=== PATIENT | female | born 1960 | race Caucasian/White ===

== ENCOUNTER → 2020-07-01 08:42 | Outpatient (BNVA) | payer MEDICARE, SELFPAY | PROVIDERS: PCP Nurse Practitioner Family; Referring Provider Nurse Practitioner Family; Visit Provider Anesthesiology Pain Medicine | DX: M51.16 Intervertebral disc disorders with radiculopathy, lumbar region (principal); M51.36 Other intervertebral disc degeneration, lumbar region; M47.816 Spondylosis without myelopathy or radiculopathy, lumbar region; M54.9 Dorsalgia, unspecified; M96.1 Postlaminectomy syndrome, not elsewhere classified; M50.90 Cervical disc disorder, unspecified, unspecified cervical region; Z98.890 Other specified postprocedural states; Z79.891 Long term (current) use of opiate analgesic | CPT/HCPCS: 99205 ==

== ENCOUNTER → 2020-07-28 09:50 | Outpatient (BNVA) | payer MEDICARE, SELFPAY | PROVIDERS: PCP Nurse Practitioner Family; Visit Provider Anesthesiology Pain Medicine | DX: M54.9 Dorsalgia, unspecified (principal); M51.16 Intervertebral disc disorders with radiculopathy, lumbar region; M51.36 Other intervertebral disc degeneration, lumbar region; M50.90 Cervical disc disorder, unspecified, unspecified cervical region; M96.1 Postlaminectomy syndrome, not elsewhere classified; Z98.890 Other specified postprocedural states | CPT/HCPCS: 99214 ==

== ENCOUNTER 2020-08-16 09:11 | Emergency (ER) | payer MEDICARE, SELFPAY ==
[2020-08-16 09:13] VITALS: BP 162/100; PULSE 91; RESP 18; TEMP 36.6; O2SAT 94; BMI 44.1
--- NOTE | 2020-08-16 09:43 | W.ED.FEMALGU ---
HPI - Female Genitourinary General: Chief complaint: Urogenital-Female Stated complaint: POSS UTI, BEEN SICK FOR FEW DAYS Time Seen by Provider: 08/16/20 09:13 History of Present Illness: HPI Narrative: 60-year-old female morbidly obese presents with vague complaints. When I first talked to the patient she states that she just does not feel well and has not been getting any better. Is difficult to get her to focus on particular complaints. She told the nurse she had a UTI nausea and chills she not actually measured her temperature she had some diarrhea earlier in the week but that has resolved. She states she has a neurogenic bladder that she self caths but is not cath for a couple of days. Her urine has been dark. She denies chest pain shortness of breath or abdominal or back or flank pain. She denies any medication melena hematemesis coffee-ground emesis no hematuria. MD elicited complaint: dysuria Pertinent past history: recurrent UTIs, tubal ligation and hysterectomy Onset (ago): day(s) Severity: mild Urinary symptoms: Dysuria Exacerbating factors: none Relieving factors: none Associated symptoms: Reports fevers/chills, nausea and weakness; Deny abdominal pain, short of breath, headache(s), seizures or syncope Treatment prior to arrival: none Review of Systems Const: Denies: fever(s), chills, body aches, change in appetite, fatigue or malaise ENMT: Denies: throat pain, ear or mastoid pain, nasal discharge or nasal congestion Card: Denies: syncope Resp: Denies: dyspnea, productive cough or non-productive cough GI: Reports: nausea; Denies: abdominal pain : Denies: flank pain, difficulty voiding, dysuria, urinary frequency or urinary urgency Skin/Breast: Denies: rash or pruritus Neuro: Denies: headache(s) PFSH ED PFSH: Medical History Arthritis Degenerative disc disease Fibromyalgia Cinthya's disease Hypertension Lung nodule Neurogenic bladder Neuropathy Surgical History History of hysterectomy History of pelvic surgery History of spinal surgery History of tonsillectomy History of tubal ligation Hx of neck surgery 2018 Dr. Stone [place]ustill[place] Family History Father Heart disease Mother Cancer Social History Smoking and tobacco status: never smoked Alcohol intake: never Adopted: No Caregiver/support person: No Lives independently: No Household members: spouse Marital status: Current occupational status: retired History of recent travel: No Sexually active: Yes Current gender identity: Female Physical Exam Const: COMMON NORMALS: no acute distress GENERAL APPEARANCE: cooperative and comfortable ORIENTATION/CONSCIOUSNESS: Yes awake, Yes oriented to person, Yes oriented to place and Yes oriented to time HENMT: COMMON NORMALS: normocephalic, atraumatic and hearing grossly normal bilaterally HEAD & SCALP: normocephalic and atraumatic Neck/C-Spine: COMMON NORMALS: no JVD Resp: COMMON NORMALS: normal respiratory effort, No retractions, No use of accessory muscles and clear to auscultation bilaterally AUSCULTATION: clear to auscultation bilaterally Cardio: COMMON NORMALS: no JVD, regular rate, regular rhythm and No murmurs present (Cardio) RATE: regular rate RHYTHM: regular rhythm GI: COMMON NORMALS: Soft to palpation and No hepatosplenomegaly present AUSCULTATION: Yes normoactive bowel sounds PALPATION: Yes Soft to palpation, No Tenderness to palpation present (GI), No Guarding due to palpation present (GI) and Yes No hepatosplenomegaly present Extremity: COMMON NORMALS: normal to inspection, capillary refill normal, no clubbing, cyanosis or edema, no calf tenderness and no pedal edema Neuro: SENSORIUM/ORIENTATION: Yes oriented to person, Yes oriented to place and Yes oriented to time Skin: COMMON NORMALS: no rashes or lesions noted GENERAL SKIN EXAM: no rashes or lesions noted Course Vital Signs: Vital signs: Vital Signs Temperature 97.8 F 08/16/20 09:13 Pulse Rate 88 08/16/20 12:53 Respiratory Rate 18 08/16/20 12:53 Blood Pressure 158/88 08/16/20 12:53 Pulse Oximetry 98 08/16/20 12:53 MDM - Female MDM Narrative: Medical decision making narrative: Patient has cystitis. Given Rocephin 2 g here started on Cipro 500 twice daily for 7 days also gave her Rocephin push fluids return if has problems. Lab Data: Labs: Lab Results 08/16/20 08/16/20 08/16/20 Range/Units 10:20 10:20 10:35 WBC 9.1 (4.0-10.0) 10^3/ uL RBC 4.87 (4.1-5.3) 10^6/u L Hgb 14.5 (11.5-15.3) g/dL Hct 43.3 (37.0-47.0) % MCV 88.9 (81-99) fL MCH 29.8 (28.0-34.0) pg MCHC 33.5 (30.0-36.0) g/dL RDW 12.1 (12.1-15.1) % Plt Count 285 (130-400) 10^3/c mm MPV 11.6 H (7.4-10.4) fL Neut % (Auto) 63.5 % Lymph % (Auto) 25.9 % [place] % (Auto) 7.1 % Eos % (Auto) 2.3 % Baso % (Auto) 1.0 % Neut # (Auto) 5.75 (1.8-7.7) 10^3/u L Lymph # (Auto) 2.3 (0.8-4.8) 10^3/u L [place] # (Auto) 0.6 (0.2-0.9) 10^3/u L Eos # (Auto) 0.2 (0.0-0.8) 10^3/u L Baso # (Auto) 0.1 (0.0-0.1) 10^3/u L Nucleated RBC % (a uto) 0 % Nucleated RBCs # 0.0 /100WBC Sodium 138 (136-145) mmol/L Potassium 3.8 (3.5-5.1) mmol/L Chloride 99 (98-107) mmol/L Carbon Dioxide 28 (22-29) mmol/L Anion Gap 14.8 (5-19) BUN 12 (6-20) mg/dL Creatinine 0.7 (0.5-0.9) mg/dL GFR Calculation 85.6 L (90-130) mL/min Glucose 112 (65-115) mg/dL Calculated Osmolal ity 287 (285-295) mOsm/k g Calcium 9.4 (8.5-10.5) mg/dL Total Bilirubin 0.8 (0.15-1.2) mg/dL AST 17 (0-32) U/L ALT 13 (0-33) U/L Alkaline Phosphata se 113 H (35-105) IU/L Total Protein 7.2 (6.6-8.7) g/dL Albumin 4.1 (3.5-5.2) g/dL Globulin 3.1 (1.3-4.6) g/dL Lipase 12 L (13-60) U/L Urine Color Yellow (Yellow) Urine Appearance Cloudy (CLEAR) Urine pH 6 (5-7) Ur Specific Gravit y 1.015 (1.005-1.030) Urine Protein Neg (Negative) Urine Glucose (UA) Norm (Normal) Urine Ketones Negative (Negative) Urine Blood Trace H (Negative) Urine Nitrate Negative (Negative) Urine Bilirubin 1+ H (Negative) Urine Urobilinogen Norm (Negative) mg/dL Ur Leukocyte Wendy ase 1+ H (Negative) Urine RBC 0-4 H (0-2) /hpf Urine WBC 25-40 H (0-5) /hpf Ur Squamous Epith Cells 5-10 H (0-5) /hpf Amorphous Sediment Not Reportable Urine Bacteria 2+ H (NONE) /hpf Discharge Plan Discharge Patient Disposition: Home Clinical Impression: Urinary tract infection Condition: Stable Prescriptions: New Zofran 4 mg tablet 4 mg PO Q6H PRN (Reason: nausea and vomiting) Qty: 20 RF: 0 Cipro 500 mg tablet 500 mg PO BID Qty: 7 RF: 0 No Action oxycodone-acetaminophen 7.5-325 mg tablet 1 tab PO TID PRN (Reason: pain) 30 Days Qty: 90 RF: 0 duloxetine 60 mg capsule,delayed release(DR/EC) 60 mg PO BID RF: 0 levothyroxine 88 mcg tablet 88 mcg PO DAILY RF: 0 valsartan 160 mg tablet 160 mg PO DAILY RF: 0 methocarbamol 750 mg tablet 750 mg PO QID PRNRF: 0 celecoxib 200 mg capsule 200 mg PO DAILY RF: 0 hydrochlorothiazide 25 mg tablet 25 mg PO DAILY RF: 0 multivitamin Tablet 1 tab PO DAILY RF: 0 diltiazem HCl 240 mg capsule,extended release 24hr 240 mg PO DAILY RF: 0 cholecalciferol (vitamin D3) 125 mcg (5,000 unit) capsule 125 mcg PO DAILY RF: 0 magnesium 200 mg tablet 400 mg PO DAILY RF: 0 Azo Cranberry 250 mg tablet,chewable 250 mg PO DAILY RF: 0 Lubricant Eye Drops 0.25 % drops 1 drp ophthalmic (eye) BID RF: 0 mecobalamin (vitamin B12) 1,000 mcg tablet,chewable 1,000 mcg PO DAILY RF: 0 Azo Cranberry 250 mg tablet,chewable 250 mg PO ONCE PRNRF: 0 hydrochlorothiazide 25 mg tablet 25 mg PO DAILY RF: 0 pregabalin 200 mg capsule 200 mg PO TID Qty: 90 RF: 0 Discharge Orders: Discharge ED (Routine); Ordered 08/16/20 Ordered By: Florentino Arteaga Referrals: Carlyn Bro FNP [Primary Care Provider] - Discharge Diet: Usual diet Discharge Activity: Increase activity as tolerated Activity Restrictions/Additional Instructions: Return to ER if symptoms worsen Coding Level of Care Code ED Warehouse Consultant for Joe Fwd Exam Comprehensive
[2020-08-16] MEDS: sodium chloride 0.9% 1,000 ML 999 ML IV (10:39)
[2020-08-16 10:44] VITALS: BP 159/85; PULSE 68; RESP 18; O2SAT 95
[2020-08-16 10:54] LABS: Basophils # 0.1 10^3/uL (0.0-0.1); Eosinophils # 0.2 10^3/uL (0.0-0.8); Eosinophils % 2.3 %; Hematocrit 43.3 % (37.0-47.0); Hemoglobin 14.5 g/dL (11.5-15.3); Lymphocytes # 2.3 10^3/uL (0.8-4.8); Lymphocytes % 25.9 %; Mean Corpuscular HGB Conc 33.5 g/dL (30.0-36.0); Mean Corpuscular Hemoglobin 29.8 pg (28.0-34.0); Mean Corpuscular Volume 88.9 fL (81-99); Mean Platelet Volume 11.6 fL (7.4-10.4); Monocytes # 0.6 10^3/uL (0.2-0.9); Monocytes % 7.1 %; Neutrophils # 5.75 10^3/uL (1.8-7.7); Neutrophils % 63.5 %; Nucleated Red Blood Cells % 0 %; Platelet Count 285 10^3/cmm (130-400); Red Blood Count 4.87 10^6/uL (4.1-5.3); Red Cell Distribution Width 12.1 % (12.1-15.1); White Blood Count 9.1 10^3/uL (4.0-10.0)
[2020-08-16 10:59] LABS: Urine Appearance Cloudy (CLEAR); Urine Color Yellow (Yellow)
[2020-08-16 11:00] LABS: Add Urine Culture? Yes; Add Urine Microscopic? YES; Bacteria Urine 2+ /hpf; Bilirubin Urine 1+ (Negative); Blood Urine Trace (Negative); Glucose Urine UA Norm (Normal); Ketones Urine Negative (Negative); Leukocyte Esterase Urine 1+ (Negative); Nitrate Urine Negative (Negative); Protein Urine Neg (Negative); RBC Urine 0-4 /hpf (0-2); Specific Gravity, Urine 1.015 (1.005-1.030); Urobilinogen Urine Norm (Negative); WBC Urine 25-40 /hpf (0-5); pH Urine 6 (5-7)
[2020-08-16 11:05] LABS: Alanine Aminotransferase 13 U/L (0-33); Albumin Level 4.1 g/dL (3.5-5.2); Alkaline Phosphatase 113 IU/L (35-105); Aspartate Amino Transferase 17 U/L (0-32); Blood Urea Nitrogen 12 mg/dL (6-20); Calcium 9.4 mg/dL (8.5-10.5); Carbon Dioxide 28 mmol/L (22-29); Chloride 99 mmol/L (98-107); Globulin 3.1 g/dL (1.3-4.6); Glomerular Filtration Rate 85.6 mL/min (90-130); Glucose 112 mg/dL (65-115); Lipase 12 U/L (13-60); Osmolality Calculated 287 mOsm/kg (285-295); Sodium 138 mmol/L (136-145); Total Bilirubin 0.8 mg/dL (0.15-1.2); Total Protein 7.2 g/dL (6.6-8.7)
[2020-08-16 11:06] LABS: Anion Gap 14.8 (5-19); Potassium 3.8 mmol/L (3.5-5.1)
[2020-08-16] MEDS: ondansetron 2 mg/ML SDV 2 mL 4 MG IVP (12:09)
[2020-08-16] MEDS: cefTRIAXone 2,000 MG in sodium chloride 0.9% (plus) 50 ML 100 MG IV (12:10)
[2020-08-16 12:44] VITALS: BP 158/88; PULSE 88; RESP 18; O2SAT 98
[2020-08-16 12:53] VITALS: BP 158/88; PULSE 88; RESP 18; O2SAT 98
== END 2020-08-16 12:54 | disposition home or self-care (01) ==
PROVIDERS: Emergency Provider Family Medicine; PCP Nurse Practitioner Family
DX: N39.0 Urinary tract infection, site not specified (principal); I10 Essential (primary) hypertension
CPT/HCPCS: 12345; 36415; 51701; 51798; 80053; 81001; 83690; 85025; 87040; 87077; 87086; 87186; 96365; 96375; 99283; 99284; J0696; J2405; J7030

== ENCOUNTER → 2020-08-25 09:56 | Outpatient (BNVA) | payer MEDICARE, SELFPAY | PROVIDERS: PCP Nurse Practitioner Family; Visit Provider Anesthesiology Pain Medicine | DX: M96.1 Postlaminectomy syndrome, not elsewhere classified (principal); M50.90 Cervical disc disorder, unspecified, unspecified cervical region; M51.16 Intervertebral disc disorders with radiculopathy, lumbar region; M47.812 Spondylosis without myelopathy or radiculopathy, cervical region; M47.816 Spondylosis without myelopathy or radiculopathy, lumbar region; M53.3 Sacrococcygeal disorders, not elsewhere classified; M54.9 Dorsalgia, unspecified; M51.36 Other intervertebral disc degeneration, lumbar region; Z98.890 Other specified postprocedural states; Z79.891 Long term (current) use of opiate analgesic | CPT/HCPCS: 99214; 99215 ==

== ENCOUNTER → 2020-08-26 11:04 | Outpatient (BNVA) | payer MEDICARE, SELFPAY | PROVIDERS: PCP Nurse Practitioner Family; Visit Provider Nurse Practitioner Family | DX: R09.89 Other specified symptoms and signs involving the circulatory and respiratory systems (principal); I49.8 Other specified cardiac arrhythmias; I10 Essential (primary) hypertension; E55.9 Vitamin D deficiency, unspecified; E06.3 Autoimmune thyroiditis; E78.5 Hyperlipidemia, unspecified; N39.0 Urinary tract infection, site not specified | CPT/HCPCS: 80053; 80061; 81000; 82306; 84443 ==

== ENCOUNTER 2020-09-12 13:02 | Outpatient (CLI) | payer MEDICARE, SELFPAY ==
--- NOTE | 2020-09-12 13:30 | USCV_ITS ---
[facility] Age: 60 Gender: F : 1960 Exam Date: 09/12/2020 13:18 Ordering Phys: Jen Brar MD ([email or web address]) Technologist: Marie Gallegos [place] [facility] [place]: CARDIAC ARRHYTHMIAS BP: 112 / 83 HR: 71 Rhythm: Other Technical Quality: Adequate MEASUREMENTS (Male / Female) Normal Values 2D ECHO LV Diastolic Diameter PLAX 5.1 cm 4.2 - 5.9 / 3.9 - 5.3 cm LV Systolic Diameter PLAX 3.4 cm IVS Diastolic Thickness 1.0 cm 0.6 - 1.0 / 0.6 - 0.9 cm IVS Systolic Thickness 1.3 cm LVPW Diastolic Thickness 0.9 cm 0.6 - 1.0 / 0.6 - 0.9 cm LVPW Systolic Thickness 1.2 cm RV Chamber Size 4.5 cm LVOT Diameter 2.0 cm LV Ejection Fraction 2D Teich 63.0 % LV Ejection Fraction MOD 2C 62.9 % LV Ejection Fraction 2C AL 61.9 % LA Diameter 3.7 cm LA Width 3.4 cm LA Height 4.7 cm RA Width 2.9 cm RA Height 4.3 cm Aorta at Sinotubular Diameter 3.2 cm M-MODE LV Diastolic Diameter MM 5.7 cm 4.2 - 5.9 / 3.9 - 5.3 cm LV Systolic Diameter MM 3.2 cm LV Ejection Fraction MM Teich 74.1 % IVS Diastolic Thickness MM 1.1 cm 0.6 - 1.0 / 0.6 - 0.9 cm IVS Systolic Thickness MM 1.3 cm LVPW Diastolic Thickness MM 0.9 cm 0.6 - 1.0 / 0.6 - 0.9 cm LVPW Systolic Thickness MM 1.3 cm Aortic Annulus Diameter 3.2 cm LA Ao Ratio MM 1.2 MV E Point Septal Separation 0.4 cm DOPPLER AV Peak Velocity 158.0 cm/s LVOT Peak Velocity 99.0 cm/s AV Area Cont Eq vti 1.9 cm squared AV Area Cont Eq pk 2.0 cm squared MV Area PHT 4.6 cm squared Mitral E to A Ratio 1.0 MV E' Velocity 57.6 cm/s Mitral E to MV E' Ratio 7.2 Mitral E to LV E' Lateral Ratio 7.2 Mitral E to LV E' Septal Ratio 7.3 TR Peak Velocity 233.0 cm/s TR Peak Gradient 21.7 mmHg TV Peak E Velocity 121.0 cm/s Right Atrial Pressure 3.0 mmHg Pulmonary Artery Systolic Pressu 24.7 mmHg PV Peak Velocity 84.0 cm/s RV Acceleration Time 0.2 s RV Ejection Time 0.4 s RV AcT/ET 0.4 FINDINGS Left Ventricle Normal left ventricular size, systolic function and wall thickness, with no regional wall motion abnormalities. Left ventricular ejection fraction is estimated at 60 %. Normal diastolic function. Right Ventricle Normal right ventricular size and systolic function. Right ventricular systolic pressure 24.7 mmHg. Right Atrium Normal right atrial size. Right atrial pressure estimated at 3 mm Hg. Left Atrium Mildly increased left atrial size. Mitral Valve Structurally normal mitral valve. No mitral valve stenosis. Trace mitral valve regurgitation. Aortic Valve Structurally normal trileaflet aortic valve. No aortic valve stenosis. No aortic valve regurgitation. Tricuspid Valve Structurally normal tricuspid valve. Trace tricuspid valve regurgitation. Pulmonic Valve Structurally normal pulmonic valve. No pulmonary valve stenosis. Trace pulmonary valve regurgitation. Pericardium No pericardial effusion. Aorta Normal size aortic root and proximal ascending aorta. Normal sized inferior vena cava. CONCLUSIONS 1. Normal left ventricular size, systolic function and wall thickness, with no regional wall motion abnormalities. Left ventricular ejection fraction is estimated at 55-60 %. Normal diastolic function. 2. No significant valvular abnormality. 3. Normal pulmonary artery pressure. 4. Mildly increased left atrial size. 5. No prior similar studies to compare. Jen Brar MD (Electronically Signed) Final Date: 15 September 2020 19:59 S
== END 2020-09-12 13:03 | disposition home or self-care (01) ==
PROVIDERS: PCP Nurse Practitioner Family; Visit Provider Internal Medicine Cardiovascular Disease
DX: I49.8 Other specified cardiac arrhythmias (principal)
CPT/HCPCS: 93306

== ENCOUNTER → 2020-10-10 09:12 | Outpatient (BNVA) | payer MEDICARE, SELFPAY | PROVIDERS: PCP Nurse Practitioner Family; Visit Provider Anesthesiology Pain Medicine | DX: G89.29 Other chronic pain (principal); M51.16 Intervertebral disc disorders with radiculopathy, lumbar region; M47.816 Spondylosis without myelopathy or radiculopathy, lumbar region; M96.1 Postlaminectomy syndrome, not elsewhere classified; M54.9 Dorsalgia, unspecified; M51.36 Other intervertebral disc degeneration, lumbar region; M50.90 Cervical disc disorder, unspecified, unspecified cervical region; M53.3 Sacrococcygeal disorders, not elsewhere classified; Z98.890 Other specified postprocedural states; Z79.891 Long term (current) use of opiate analgesic | CPT/HCPCS: 99214 ==

== ENCOUNTER 2020-10-15 08:50 | Outpatient (CLI) | payer MEDICARE, SELFPAY ==
--- NOTE | 2020-10-15 09:15 | CT_ITS ---
WS: [id number] CT LUMBAR SPINE TECHNIQUE: Noncontrast CT of the lumbar spine with coronal and sagittal reformatted images. CLINICAL INFORMATION: M54.16 - Radiculopathy, lumbar region COMPARISON: None. DLP: [address] scans at [facility] use at least one of these dose optimization techniques: automat ed exposure control; mA and/or kV adjustment per patient size (includes targeted exams where dose is matched to clinical indication); or iterative reconstruction. FINDINGS: Mild lumbar curve. No acute compression. Slight anterolisthesis L3 on L4. Pedicle screw fixation L4-5 with interconnecting rods. Pedicle screws are intact. No evidence of screw loosening. Dorsal lateral bone graft material. Laminectomy defects L4-L5 and L5-S1. L1-L2: Slight annular bulging with peripheral disc calcification eccentric to the left. Spinal canal and foramen are patent. Mild facet arthropathy. L2-L3: Mild annular bulging. Moderate facet arthropathy. Spinal canal and foramen are patent. L3-L4: Grade 1 anterolisthesis L3 on L4. Disc bulging with impingement on the subarticular recess rig ht greater than left. Moderate central canal stenosis due to grade 1 anterolisthesis in combination w ith mild disc bulging and facet arthropathy with ligamentum flavum hypertrophy. Moderate facet arthro arden. Impingement on the traversing right greater than left L4 nerve roots. Bilateral foraminal prot rusions impinge the exiting L3 nerve roots bilaterally. Moderate right greater than left foraminal na rrowing. L4-L5: Pedicle screw fixation. No evidence of hardware loosening. Laminectomy defects. Spinal canal i s patent. Osteophytic ridging. Dorsal lateral bone graft material. Foramen are patent. L5-S1: Pedicle screw fixation. No significant disc bulging. Spinal canal and foramen are patent. Lami nectomy defects with dorsolateral bone graft material. Visualized pelvic bony structures: Normal. Paravertebral soft tissues: Normal. CT/CT lumbar spine wo con* [id number] IMPRESSION: 1. Mild lumbar curve. No acute compression. Grade 1 anterolisthesis L3 on L4. 2. Pedicle screw fixation L4-5 with dorsolateral bone graft material. No evide nce of hardware loosening. Interconnecting rods appear intact. 3. Grade 1 anterolisthesis L3 on L4 with disc bulging and facet arthropathy re sults in moderate central canal stenosis. Impingement on the right subarticular recess and traversing right L4 nerve root. Moderate right greater than left fo raminal narrowing with small bilateral foraminal protrusions. 4. Spinal canal and foramen are patent at the fusion levels L4-L5 and L5-S1.
== END 2020-10-15 08:51 | disposition home or self-care (01) ==
LOC: RADWPI 08:56
PROVIDERS: PCP Nurse Practitioner Family; Visit Provider Anesthesiology Pain Medicine
DX: M54.16 Radiculopathy, lumbar region (principal); M43.26 Fusion of spine, lumbar region; M43.27 Fusion of spine, lumbosacral region; M51.26 Other intervertebral disc displacement, lumbar region
CPT/HCPCS: 72131

== ENCOUNTER → 2020-10-21 13:06 | Outpatient (BNVA) | payer MEDICARE, SELFPAY | PROVIDERS: PCP Nurse Practitioner Family; Visit Provider Anesthesiology Pain Medicine | DX: M53.3 Sacrococcygeal disorders, not elsewhere classified (principal); M25.551 Pain in right hip; M25.552 Pain in left hip; M54.9 Dorsalgia, unspecified; Z79.891 Long term (current) use of opiate analgesic | CPT/HCPCS: 20610; G0260; J1030; J3490 ==

== ENCOUNTER 2020-10-22 08:44 | Outpatient (CLI) | payer MEDICARE, SELFPAY ==
--- NOTE | 2020-10-22 09:32 | XR_ITS ---
WS: [id number] Pelvis, AP and both obliques, 10/22/2020 Clinical Data: M53.3 - Sacrococcygeal disorders, not elsewhere classified Comparison: None. Findings: The hips are intact. The SI joints and pubic symphysis are normal. There are no fractures or dislocations. The patient has had a bony fusion and a pedicle fusion with s crews and connecting rods of the L4-L5 levels with laminectomies at L4 and L5. No bone destruction or erosion is seen. XR/XR pelvis min 3V [id number] Impression: Negative for fracture.
--- NOTE | 2020-10-22 09:32 | XR_ITS ---
WS: [id number] Lumbar spine, AP, Spot film L5-S1, both obliques, lateral with flexion, extension and neutral positio ns, 10/22/2020 Clinical Data: M47.816 - Spondylosis without myelopathy or radiculopathy, lumbar region Comparison: None. Findings: No compression fractures are seen. Degenerative disc narrowing occurs at L4-L5. The transverse proce sses and SI joints are normal. The patient has had a bony fusion and a pedicle fusion with screws and connecting rods at L4-L5. The oblique films show no foraminal narrowing. On flexion and extension there is no limitation of motion. There is a 0.4 subluxation of L3 on L4 which does not change with flexion or extension. XR/XR lumbar spine 6V w f/e [id number] Impression: 1. Bony and pedicle fusion with screws at L4-L5. 2. Disc space narrowing at L4-L5. 3. 0.4 subluxation of L3 on L4 which does not change with flexion or extension. 4. Negative for limitation of motion on flexion or extension. 5. Negative for foraminal narrowing on oblique films. 6. L4-L5 laminectomy.
--- NOTE | 2020-10-22 09:32 | XR_ITS ---
WS: [id number] Cervical spine, AP, lateral, both obliques and odontoid views, 10/22/2020 Clinical Data: M47.812 - Spondylosis without myelopathy or radiculopathy, cervical region Comparison: None. Findings: No compression fractures are seen. There is an anterior cervical disc fusion at C4-C5 with artificial disc material at C4-C5 and C5-C6.. There is no prevertebral soft tissue swelling. The obli que films show no foraminal encroachment. The odontoid is unremarkable. The soft tissues of the neck and the lung apices are normal. XR/XR cervical spine 4-5V [id number] Impression: 1. Anterior cervical disc fusion C4-C5. 2. Negative for foraminal encroachment.
[2020-10-22 09:42] VITALS: BMI 42.4
--- NOTE | 2020-10-22 09:45 | ECG_ITS ---
[facility] Test Date: 2020-10-22 Pat Name: Brigida Winkler Department: Room: Gender: Female Disintegrator Feeder: : 1960 Requested By: Jen Brar Order Number: [id number] Alexa MD: Jen Brar M.D. Interpretive Statements NAME OF STUDY: LEXISCAN SESTAMIBI STRESS TEST INDICATION: Frequent PVC's PROCEDURE: At the baseline, the blood pressure was 138/95 mmHg, oxygen saturation 95% with a heart rate of 78 bpm. The electrocardiogram showed normal sinus rhythm, normal axis with normal ST and T's. Frequent PVCs in bigeminal pattern were noted just before exercise. The Lexiscan was infused over a period of 20 seconds. A total of 0.4 milligrams of Lexiscan was infused. The stress phase was continued for a total of 5 minutes. Heart rate at the end of the stress phase was 90 bpm, oxygen saturation 96% with a blood pressure of 139/86 mmHg. The EKG at the peak infusion revealed sinus rhythm with frequent PVCs in bigeminal pattern. No significant ST-T wave changes. Sestamibi was injected 20 seconds after the Lexiscan infusion. Blood pressure at the end of the recovery phase was 136/80 mmHg, oxygen saturation 94% with a heart rate of 85 beats per minute. CONCLUSION: 1. No significant EKG changes with the LexiScan infusion. 2. No LexiScan induced chest pain. Frequent isolated PVCs in bigeminal pattern noted at rest and with Lexiscan infusion. 3. Normal blood pressure and heart rate response. 4. Sestamibi/sestamibi perfusion scan pending; see separate report. RESULTS TO ESME LOVE Electronically Signed On 10-27-2020 14:22:22 CDT by Jen Brar M.D. [id number]
--- NOTE | 2020-10-22 09:46 | NMCV_ITS ---
NM monica perf SPECT r/s* [id number] Brigida Winkler Age: 60 Gender: F : 1960 Exam Date: 10/22/2020 10:07 Ordering Phys: Jen Brar MD ([email or web address]) Technologist: JEAN Tirado Exam Location: [facility] - [place] Indications: ARRHYTHMIA STRESS TEST Please see separate stress test report in [facility] for full findings IMAGE PROTOCOL Rest/Stress 1 Lexiscan Day Radiopharmaceutical Dose (mCi) Administration Site Administered by Rest: Tc-99m 11.0 IV JEAN Murphy Sestamibi Stress:Tc-99m 32.7 IV JEAN Murphy Sestamibi Rest: 22-Oct-2020 60 Discovery 630 Stress: 22-Oct-2020 30 Discovery 630 0.4mg Lexiscan. Images obtained in supine and prone position. SPECT RESULTS Technical Quality: Excellent Raw Data Analysis: Breast attenuation Image Corrections: No attenuation or motion correction applied Summed Stress Score: 4 Summed Rest Score: 1 Summed Difference Score: 3 PERFUSION FINDINGS Small sized perfusion abnormality of mild severity of mid inferolateral wall on rest images with decreased tracer uptake in mid to apical inferolateral taylor on supine stress images. There is somewhat improved tracer uptake in mid inferolateral wall on prone stress images. FUNCTIONAL RESULTS (calculated via Gated SPECT) Stress Image LV EF (%): 74 Stress EDV (mL):104 TID: 0.86 Stress ESV (mL):27 FUNCTIONAL FINDINGS: The left ventricle is normal in size. Transient Ischemia Dilatation of 0.86. There is normal left ventricular systolic function. The left ventricular ejection fraction is normal with a value of 74%. There is normal left ventricular wall thickening and no regional wall motion abnormality. Normal end-diastolic end-systolic volumes IMPRESSIONS 1. Small sized reversible perfusion abnormality of mild severity of apical lateral wall. This may represent small area of ischemia in circumflex artery territory. However attenuation artifact cannot be completely ruled out. 2. Overall left ventricular systolic function is normal without regional wall motion abnormalities. 3. The left ventricular ejection fraction is normal with a value of 74%. 4. No significant ST-T wave changes with Lexiscan stress. Frequent isolated PVCs noted during Lexiscan infusion. Refer to EKG portion of the study for details. 5. No prior similar studies to compare. Jen Brar MD (Electronically Signed) Final Date: 27 October 2020 14:25 S
[2020-10-22] MEDS: regadenoson 0.4 Mg/5 ml Syringe IVP (10:53)
[2020-10-22 11:24] VITALS: BP 136/88; PULSE 85
== END 2020-10-22 08:45 | disposition home or self-care (01) ==
LOC: CDL 08:47
PROVIDERS: PCP Nurse Practitioner Family; Visit Provider Internal Medicine Cardiovascular Disease
DX: I49.8 Other specified cardiac arrhythmias (principal); M47.812 Spondylosis without myelopathy or radiculopathy, cervical region; M53.3 Sacrococcygeal disorders, not elsewhere classified; M47.816 Spondylosis without myelopathy or radiculopathy, lumbar region; M96.1 Postlaminectomy syndrome, not elsewhere classified; S33.130A Subluxation of L3/L4 lumbar vertebra, initial encounter; X58.XXXA Exposure to other specified factors, initial encounter; M43.22 Fusion of spine, cervical region
CPT/HCPCS: 72050; 72114; 72190; 78452; 93017; A9500; J2785

== ENCOUNTER → 2020-10-24 11:37 | Outpatient (BNVA) | payer MEDICARE, SELFPAY | PROVIDERS: PCP Nurse Practitioner Family; Visit Provider Nurse Practitioner Family | DX: N39.0 Urinary tract infection, site not specified (principal) | CPT/HCPCS: 81000; 87077; 87086; 87184 ==

== ENCOUNTER → 2020-11-03 08:13 | Outpatient (BNVA) | payer MEDICARE, SELFPAY | PROVIDERS: PCP Nurse Practitioner Family; Visit Provider Anesthesiology Pain Medicine | DX: M51.16 Intervertebral disc disorders with radiculopathy, lumbar region (principal); M51.36 Other intervertebral disc degeneration, lumbar region; M96.1 Postlaminectomy syndrome, not elsewhere classified; M54.9 Dorsalgia, unspecified; M50.90 Cervical disc disorder, unspecified, unspecified cervical region; M53.3 Sacrococcygeal disorders, not elsewhere classified; Z79.899 Other long term (current) drug therapy; Z98.890 Other specified postprocedural states; Z79.891 Long term (current) use of opiate analgesic | CPT/HCPCS: 99214 ==

== ENCOUNTER → 2020-11-05 10:19 | Outpatient (BNVA) | payer MEDICARE, SELFPAY | PROVIDERS: PCP Nurse Practitioner Family; Visit Provider Nurse Practitioner Family | DX: R31.9 Hematuria, unspecified (principal); N39.0 Urinary tract infection, site not specified | CPT/HCPCS: 87077; 87086; 87184 ==

== ENCOUNTER → 2020-11-19 10:13 | Outpatient (BNVA) | payer MEDICARE, SELFPAY | PROVIDERS: PCP Nurse Practitioner Family; Visit Provider Nurse Practitioner Family | DX: N39.0 Urinary tract infection, site not specified (principal); R31.9 Hematuria, unspecified | CPT/HCPCS: 81000; 87086 ==

== ENCOUNTER → 2020-12-01 09:20 | Outpatient (BNVA) | payer MEDICARE, SELFPAY | PROVIDERS: PCP Nurse Practitioner Family; Visit Provider Anesthesiology Pain Medicine | DX: G89.29 Other chronic pain (principal); M51.16 Intervertebral disc disorders with radiculopathy, lumbar region; M51.36 Other intervertebral disc degeneration, lumbar region; M54.9 Dorsalgia, unspecified; M96.1 Postlaminectomy syndrome, not elsewhere classified; M53.3 Sacrococcygeal disorders, not elsewhere classified; M50.90 Cervical disc disorder, unspecified, unspecified cervical region; Z98.890 Other specified postprocedural states; Z79.891 Long term (current) use of opiate analgesic | CPT/HCPCS: 99214 ==

== ENCOUNTER → 2020-12-08 11:22 | Outpatient (BNVA) | payer MEDICARE, SELFPAY | PROVIDERS: PCP Nurse Practitioner Family; Visit Provider Nurse Practitioner Family | DX: R31.9 Hematuria, unspecified (principal) | CPT/HCPCS: 87086 ==

== ENCOUNTER 2020-12-22 13:28 | Outpatient (RCR) | payer MEDICARE, SELFPAY | END 2021-01-12 23:59 | disposition home or self-care (01) | LOC: SPT 13:28 | PROVIDERS: PCP Nurse Practitioner Family; Referring Provider Anesthesiology Pain Medicine; Visit Provider Anesthesiology Pain Medicine | DX: M54.5 Low back pain (principal); G89.29 Other chronic pain | CPT/HCPCS: 97110; 97162 ==

== ENCOUNTER → 2020-12-30 09:50 | Outpatient (BNVA) | payer MEDICARE, SELFPAY | PROVIDERS: PCP Nurse Practitioner Family; Visit Provider Anesthesiology Pain Medicine | DX: M96.1 Postlaminectomy syndrome, not elsewhere classified (principal); M50.90 Cervical disc disorder, unspecified, unspecified cervical region; M51.16 Intervertebral disc disorders with radiculopathy, lumbar region; M51.36 Other intervertebral disc degeneration, lumbar region; M53.3 Sacrococcygeal disorders, not elsewhere classified; M54.9 Dorsalgia, unspecified; Z98.890 Other specified postprocedural states; Z79.899 Other long term (current) drug therapy; Z79.891 Long term (current) use of opiate analgesic | CPT/HCPCS: 99214 ==

== ENCOUNTER → 2021-01-09 13:15 | Outpatient (BNVA) | payer MEDICARE, SELFPAY | PROVIDERS: PCP Nurse Practitioner Family; Visit Provider Anesthesiology Pain Medicine | DX: G89.29 Other chronic pain (principal); M54.5 Low back pain; M96.1 Postlaminectomy syndrome, not elsewhere classified; Z79.891 Long term (current) use of opiate analgesic | CPT/HCPCS: 62323; J3490 ==

== ENCOUNTER → 2021-01-14 10:24 | Outpatient (BNVA) | payer MEDICARE, SELFPAY | PROVIDERS: PCP Nurse Practitioner Family; Referring Provider Internal Medicine; Visit Provider Internal Medicine | DX: R94.39 Abnormal result of other cardiovascular function study (principal); Z01.818 Encounter for other preprocedural examination; Z20.822 Contact with and (suspected) exposure to COVID-19 | CPT/HCPCS: 80048; 85025; 85610; 87635 ==

== ENCOUNTER 2021-01-20 09:51 | Observation (INO) | payer MEDICARE, SELFPAY ==
[2021-01-20] VITALS (55 sets, daily range): BP systolic 114–154; BP diastolic 68–87; PULSE 52–81; RESP 12–24; TEMP 36; O2SAT 89–97; BMI 43.1
--- NOTE | 2021-01-20 09:16 | XACV_ITS ---
Exam Room: [facility] Ht: 165 cm Wt: 117 kg BSA: 2.38 m2 Gender: Female : 1960 Any Known Allergies: Sulfa Exam Priority: Routine Procedure(s): Procedure Description: Diagnostic procedure Procedure Description: Left Heart Catheterization Procedure Description: Left ventriculography Procedure Description: Coronary Angiography Diagnostic Cath Status: Elective Diagnostic Findings * No disease noted in the Left Main, Left Anterior Descending, Right, or Circumflex coronary arteries. * Coronary angiography shows right dominance. Conclusions 1. No disease noted in the Left Main, Left Anterior Descending, Right, or Circumflex coronary arteries. 2. Normal left ventricular systolic function. Ejection fraction of 50%. Recommendations * Aggressive risk factor modification. * Outpatient cardiology follow up in 1 month. Interventional RX Recommendation: medical therapy and/or counseling Diagnostic RX Recommendation: medical therapy and/or counseling Anticoagulation: Heparin Ventriculography Ejection Fraction: 50.0 % Pressures Phase:Rest AO : 99 / 65 ( 81 ) @ 9:32:00 AM 137 / 80 ( 106 ) @ 9:37:00 AM 133 / 73 ( 90 ) @ 9:37:00 AM LV : 127 / 8 / 28 @ 9:36:00 AM 134 / 6 / 29 @ 9:37:00 AM 131 / 6 / 28 @ 9:37:00 AM Valves Phase:DefaultPhase AV : 0.0 @ 10:43:45 AM Clinical Evaluation EBL: 5mL-10mL Procedural Details Procedure Consent Obtained. Pre-Procedure Time Out. Identified patient by full name and date of as verbalized by the patient/guarantor. Does the consent match the physician's order: Yes. Accurate & Complete Informed Consent: Yes. Inpatient/Outpatient History & Physical on Chart: Yes. If H&P is completed, is and addenduem needed: No; If yes, is the addendum complete: N/A. Visualize and Verify Site with Patient/Guarantor: N/A. Relevant Radiology Images available: N/A. Pre-op teaching completed and patient verbalized understanding. The risks, benefits, and alternatives of sedation and/or procedure were discussed by physician. The patient agrees to continue. Physician arrived. Procedure started. [facility] Clinical Fraility Score: 2: Well. Physical Laboratory Assistant Indications: Worsening Angina, abnormal stress test. Chest Pain Symptom Assessment: Atypical Angina. Cardiovascular Instability: No. Correct patient, site and procedure confirmed by cath team. PERRLA. Strong, equal hand tobacco stripper hand bilaterally. Lungs clear x 5 lobes. IV Site on Arrival: 18 gauge in the left anticubital. IV Fluids: 0.9% NaCl at KVO. 0 mL infused prior to dentures lab technician. Pre Procedural Pulses: bilateral dorsalis pedis was 2+. Pre Procedural Pulses: bilateral posterior tibial was Doppled. Pre Procedural Pulses: bilateral radial was 3+. Oxygen started at 2liters/min via nasal canula. Baseline sample Acquired. HR: 57 BPM. right groin was prepped with chloroprep then draped in the usual sterile fashion. right radial was prepped with chloroprep then draped in the usual sterile fashion. Equipment: 6F - Radial. Cardiac Cath Pack. ACIST Manifold Kit Model BT 2000. Heparinized Saline (2 units/mL), 1000 mL bag. Physician scrubbed in. Immediate Pre-Procedure Time Out. Correct Patient: Yes; Correct Procedure: Yes; Correct Site: Yes; Correct Patient Position: Yes; Correct Supplies: Yes; Dried Flammable Prep: Yes; Blood Products Available: N/A;. Lidocaine 1% infiltrated to the right radial. Arterial access obtained. Lidocaine 1% infiltrated to the right radial. A 5 thai TIG catheter in over wire. Multiple views taken of left coronary artery. Catheter redirected to the RCA. Multiple views taken of right coronary artery. Catheter removed over the exchange wire. A 5 thai Angled Pig catheter in over wire. EDP Sample taken: LV 127/8,28; HR: 74 BPM; SpO2: 98%. LV gram performed in ALEJANDRO @ 10 mL/second for a total of 30 mL. EDP Sample taken: LV 134/6,29; HR: 73 BPM; SpO2: 97%. Pullback taken: LV 131/6,28; AO 137/80(106); Mean: , Peak to Peak: 0mmHg, SEP: ; HR: 76 BPM; SpO2: 97%. Catheter out. Physician scrubbed out. A TR Band was successful obtaining hemostatsis at the Right Radial artery insertion site. TR band placed. Hemostasis obtained. Post Procedure: Pulses reassessed and unchanged. PERRLA. Strong, equal hand tobacco stripper hand bilaterally. No VTE prophylaxis required. Medication's Wasted: Lidocaine 1% = 18 mL. Medication's Wasted: Nitro = 49.8 mg. Medication's Wasted: Heparin = 1000 units. Medication's Wasted: Other = versed 2 mg. Medication's Wasted: Other = fentanyl 100 mcg. Total IV fluids: 19.5 mL. Contrast type used: Omnipaque 300 mgI/mL, 500 mL bottle. Post-op diagnosis: nonobstructive CAD. Complications: none. Estimated blood loss: 5mL-10mL. Procedure completed. Patient transferred by wheelchair to 1st floor. Vital chart was stopped. Access Site Site: Right Radial artery Sheath Size: 6 Fr Hemostasis Method: TR Band Hemostasis Success: Successful Procedure Medications Start: 10:19 AM Stop: 10:19 AM Medication: Versed Amount: 1 mg Route: I.V. Start: 10:20 AM Stop: 10:20 AM Medication: Fentanyl Amount: 50 mcg Route: I.V. Start: 10:26 AM Stop: 10:26 AM Medication: Versed Amount: 1 mg Route: I.V. Start: 10:26 AM Stop: 10: AM Medication: Fentanyl Amount: 50 mcg Route: I.V. Start: 10:29 AM Stop: : AM Medication: Nitrogylcerin Amount: 200 mcg Route: I.A. I, the attending physician, have reviewed and verified all procedure medications. Yes, all medications given per verbal order History/Risk Factors Hypertension: Yes Dyslipidemia: Yes Peripheral Arterial Disease (PAD): No Myocardial Infarction ([place]): No Obesity: No Renal Disease: No Tobacco Use: Never Prior Interventions PCI: No CABG: No Valve Surgery: No Report Signatures Finalized by Young Rivero MD on 01/20/2021 03:28 PM
[2021-01-20] MEDS: diphenhydrAMINE 50 mg Capsule PO (09:40)
--- NOTE | 2021-01-20 10:09 | P.HP_ITS ---
Same Day Surgery H&P Indication for Procedure/HPI DATE OF PROCEDURE: January 20, 2021 CHIEF COMPLAINT/INDICATIONFOR SURGICAL PROCEDURE: Palpitations/chest discomfort/abnormal stress test PREOP DIAGNOSIS: Palpitations/chest discomfort/abnormal stress test PLANNED PROCEDRUE: Operation Date: 01/20/21 10:00 Proposed Procedures p Cardiac Catheterization 64924 R94.39(Left) - Young Rivero M.D Possible percutaneous coronary intervention 60 yo woman with PMHx of hypertension, DDD, arthritis, neuropathy and fibromyalgia presented for evaluation of palpitations. It started 3 months back and frequency increased recently. Also feels pinching discomfort. Her EKG showed frequent PVCs. She underwent nuclear stress test that was abnormal and showed ischemia in the apical lateral wall. ROS CONSTITUTIONAL: No fever or chills. [] EYES: No blurring of vision or other visual disturbances lately. [] ENT: No hoarseness of voice, auditory disturbances or sore throat. [] CARDIOVASCULAR: As mentioned above. [] RESPIRATORY: No significant cough. [] GASTROINTESTINAL: No hematemesis or melena. [] GENITOURINARY: No dysuria or hematuria. [] INTEGUMENTARY: No skin rashes or history of skin cancer. [] NEURO: No transient ischemic attacks or amaurosis. [] PSYCHIATRIC: No history of psychosis or major depression. [] HEMATOLOGIC: No bleeding disorders or significant anemia. [] ENDOCRINE: No history of polyuria or polydipsia. [] MUSCULOSKELETAL: No recent joint pain or swelling. [] ALLERGY/IMMUNOLOGY: As mentioned above. [] Medications/Allergies* Home Medications Medication Instructions Recorded Confirmed Type carboxymethylcellulose sodium 0.25 1 drp OPHTHALMIC (EYE) PRN 06/25/20 01/20/21 History % eye drops cholecalciferol (vitamin D3) 125 125 mcg PO DAILY 06/25/20 01/20/21 History mcg (5,000 unit) capsule cranberry fruit concentrate 250 mg 250 mg PO DAILY tab 06/25/20 01/20/21 History chewable tablet duloxetine 60 mg capsule,delayed 60 mg PO BID 06/25/20 01/20/21 History release hydrochlorothiazide 25 mg tablet 25 mg PO DAILY 06/25/20 01/20/21 History magnesium 200 mg tablet 400 mg PO DAILY tab 06/25/20 01/20/21 History multivitamin 1 tab PO DAILY 06/25/20 01/20/21 History potassium gluconate 595 mg (99 mg) 595 mg PO DAILY 09/26/20 01/20/21 History tablet Aspir-81 81 mg PO DAILY 01/19/21 01/20/21 History clopidogrel 300 mg PO DAILY 01/19/21 01/20/21 History Allergies/Adverse Reactions Allergy/AdvReac Type Severity Reaction Status Date / Time Sulfa (Sulfonamide Allergy rash Verified 01/09/21 13:55 Antibiotics) Current Medications: Generic Name Dose Route Start Last Admin Trade Name Freq PRN Reason Stop Dose Admin Sodium Chloride 1,000 mls @ 50 mls/hr 01/20/21 09:17 01/20/21 09:40 Sodium Chloride 0.9% IV 01/21/21 05:16 Not Given .Q20H ONE Pertinent History/Comorbid Conditions* Medical History (Updated 11/28/20 @ 12:56 by Jen Brar MD) Abnormal stress test Arthritis Degenerative disc disease Fibromyalgia Cinthya's disease Hypertension Hypothyroidism Lung nodule Neurogenic bladder Neuropathy Urine retention Surgical History (Updated 07/01/20 @ 10:31 by Andrew Moeller MD) History of hysterectomy History of pelvic surgery History of spinal surgery History of tonsillectomy History of tubal ligation Hx of neck surgery 2017 Dr. Stone [place] Family History (Updated 06/25/20 @ 14:47 by Susie Siddiqui LPN) Heart disease Father Cancer Mother Social History Smoking and tobacco status: never smoked Second hand smoke exposure: No Alcohol intake: never Adopted: No Caregiver/support person: No Lives independently: No Household members: spouse Marital status: Current occupational status: retired History of recent travel: No Sexually active: Yes Current gender identity: Female Pertinent Exam Findings alert, oriented x 3, clear to auscultation bilaterally and regular rate & rhythm Conscious Sedation Assessment PATIENT ASSESSED PRIOR TO SEDATION, WITH NO CHANGE NOTED: Yes AIRWAY EVAL/ANESTHESIA PLAN: normal airway, see other exam findings, ASA III, Monitored Anesthesia, Local Anesthesia, Risks, benefits & alternatives of marcus tion and/or procedure discussed and Patient agrees to continue as planned Recommendations Surgery/Procedure today (Left heart cath with possible percutaneous coronary intervention) Coding Level of Care Code Acute Coding Manager for Joe Kapadia
--- NOTE | 2021-01-20 10:45 | PC.NURSE ---
From slab grinder Pt is sleepy post sedation. [facility] diagnostic only. tr band intact on right wrist with 15 mls of air per slab grinder hand-off report. no hematoma, bleeding, swelling or pain noted. radial pulse is palpable +3. Instructed pt and at bedside of no pulling, pushing or lifting using her right arm. to call nurse right away for any unusual pain, numbness or pressure or bleeding on the wrist. Pt verbalizes understanding. vs monitored.
--- NOTE | 2021-01-20 14:00 | PC.NURSE ---
TR band off No hematoma, bleeding or swelling. Radial pulse is palpable. Skin is warm. Pt denies any pain on access site. Post angiogram activity restrictions discuss to pt. Pt verbalizes understanding.
--- NOTE | 2021-01-20 16:35 | PC.NURSE ---
Discharge to home Instructed pt to follow-up with her scheduled appointments. Pt informed that plavix has been DC. Post angiogram home care instructions provided to pt. discharge packet provided to pt.
--- NOTE | 2021-01-28 15:59 | PC.NURSE ---
Discharge packet printed for [facility].
== END 2021-01-20 16:34 | disposition home or self-care (01) ==
LOC: CSU 09:51
PROVIDERS: Admitting Provider Internal Medicine; PCP Nurse Practitioner Family; Visit Provider Internal Medicine
DX: R07.89 Other chest pain (principal); R94.39 Abnormal result of other cardiovascular function study; I10 Essential (primary) hypertension; M19.90 Unspecified osteoarthritis, unspecified site; M79.7 Fibromyalgia; Z79.82 Long term (current) use of aspirin; E03.9 Hypothyroidism, unspecified
CPT/HCPCS: 36415; 93452; C1769; C1887; C1894; G0378; J1644; J2250; J3010; J3490; J7030; Q0163; Q9967

== ENCOUNTER → 2021-01-22 09:55 | Outpatient (BNVA) | payer MEDICARE, SELFPAY | PROVIDERS: PCP Nurse Practitioner Family; Visit Provider Anesthesiology Pain Medicine | DX: M54.9 Dorsalgia, unspecified (principal); M51.36 Other intervertebral disc degeneration, lumbar region; M51.16 Intervertebral disc disorders with radiculopathy, lumbar region; M50.90 Cervical disc disorder, unspecified, unspecified cervical region; M53.3 Sacrococcygeal disorders, not elsewhere classified; M96.1 Postlaminectomy syndrome, not elsewhere classified; Z98.890 Other specified postprocedural states; Z79.891 Long term (current) use of opiate analgesic | CPT/HCPCS: 99214 ==

== ENCOUNTER → 2021-01-28 09:45 | Outpatient (BNVA) | payer MEDICARE, SELFPAY | PROVIDERS: PCP Nurse Practitioner Family; Visit Provider Nurse Practitioner Family | DX: I10 Essential (primary) hypertension (principal) | CPT/HCPCS: 80048 ==

== ENCOUNTER → 2021-02-20 09:35 | Outpatient (BNVA) | payer MEDICARE, SELFPAY | PROVIDERS: PCP Nurse Practitioner Family; Visit Provider Anesthesiology Pain Medicine | DX: G89.29 Other chronic pain (principal); M51.36 Other intervertebral disc degeneration, lumbar region; M51.16 Intervertebral disc disorders with radiculopathy, lumbar region; M96.1 Postlaminectomy syndrome, not elsewhere classified; M50.90 Cervical disc disorder, unspecified, unspecified cervical region; M53.3 Sacrococcygeal disorders, not elsewhere classified; Z98.890 Other specified postprocedural states; Z79.891 Long term (current) use of opiate analgesic | CPT/HCPCS: 99214 ==

== ENCOUNTER 2021-03-03 11:32 | Outpatient (CLI) | payer MEDICARE, SELFPAY ==
--- NOTE | 2021-03-03 11:37 | XR_ITS ---
WS: [id number] Left knee, 3 views, 03/03/2021 Clinical Data: M25.562 - Pain in left knee Comparison: None. Findings: There is minimal narrowing of the medial joint compartment. The lateral joint compartment is normal. There is posterior left patellar spurring. No fractures or dislocations are seen. The soft tissues are normal. There may be a small enchondroma of the proximal left tibia. XR/XR knee LT 3V* [id number] Impression: Minimal osteoarthritis of the medial joint compartment and posterior patella Kellgren-Osman Classification: grade 2 (minimal): definite osteophytes and p ossible joint space narrowing
== END 2021-03-03 11:33 | disposition home or self-care (01) ==
PROVIDERS: PCP Nurse Practitioner Family; Visit Provider Nurse Practitioner Family
DX: M25.562 Pain in left knee (principal)
CPT/HCPCS: 73562

== ENCOUNTER 2021-03-30 11:04 | Outpatient (CLI) | payer MEDICARE, SELFPAY | END 2021-03-30 11:05 | disposition home or self-care (01) | PROVIDERS: PCP Nurse Practitioner Family; Visit Provider Nurse Practitioner Family | DX: E55.9 Vitamin D deficiency, unspecified (principal); Z79.899 Other long term (current) drug therapy; E78.2 Mixed hyperlipidemia; Z12.4 Encounter for screening for malignant neoplasm of cervix; E03.9 Hypothyroidism, unspecified | CPT/HCPCS: 80053; 80061; 82306; 88175 ==

== ENCOUNTER → 2021-04-13 09:15 | Outpatient (BNVA) | payer MEDICARE, SELFPAY | PROVIDERS: PCP Nurse Practitioner Family; Visit Provider Nurse Practitioner Family | DX: E03.9 Hypothyroidism, unspecified (principal); Z79.899 Other long term (current) drug therapy; E78.2 Mixed hyperlipidemia; E55.9 Vitamin D deficiency, unspecified | CPT/HCPCS: 80053; 80061; 81000; 82306; 84443 ==

== ENCOUNTER 2021-04-14 07:04 | Outpatient (CLI) | payer MEDICARE, SELFPAY ==
--- NOTE | 2021-04-14 07:15 | MR_ITS ---
WS: [id number] MRI LEFT KNEE HISTORY: M23.52 - Chronic instability of knee, left knee COMPARISON: LEFT knee radiographs 03/03/2021 Anterior cruciate ligament: Intact. Posterior cruciate ligament: Intact. Medial collateral ligament: Fluid adjacent to the MCL is predominantly between the MCL and the osseou s structures. MCL is displaced secondary to an extruded meniscus and osteophytes. Posterior lateral corner structures: Intact. Medial menisci: Abnormal signal in the posterior horn. There is a complex tear involving the body of the meniscus and the meniscal root. There is a horizontal component but there is also complex abnorma l signal extending towards the meniscal root. Meniscus is extruded from the joint. Lateral meniscus: Intact. Normal signal, size and shape. Extensor mechanism: Distal quadriceps tendon and patellar tendons are intact. There is a small amount of marrow edema where the distal patellar tendon inserts into the anterior tibia. Fluid and soft tissue: Very small joint effusion. There is edema around the femoral condyles, greates t medially. No Haro's cyst. Osseous and articular structures: Patellofemoral compartment: Mild narrowing of patellofemoral joint space. Significant loss of cartila ge over the medial facet and patellar eminence. Moderate loss over the lateral patellar facet. There are a few small subchondral cystic changes along the facets. Medial compartment: Moderate narrowing of the medial compartment with loss of cartilage along the layne ghtbearing surfaces of the femoral condyle and tibial plateau. There are small osteophytes extending from the joint line. Meniscus is extruded and there is marrow edema in the femoral condyle and tibial plateau. Lateral compartment: Mild narrowing of the lateral compartment with mild fissuring of the cartilage. No full-thickness defects. MR/MR knee LT wo con* [id number] IMPRESSION: 1. Complex tear posterior horn medial meniscus with involvement of the body an d the meniscal root. Meniscus is partially extruded from the joint line. 2. Marrow edema in the medial femoral condyle and tibial plateau with advanced chondromalacia. 3. Mild MCL sprain. 4. Moderate chondromalacia patella.
== END 2021-04-14 07:05 | disposition home or self-care (01) ==
LOC: RADSHAW 07:07
PROVIDERS: PCP Nurse Practitioner Family; Visit Provider Nurse Practitioner Family
DX: M23.52 Chronic instability of knee, left knee (principal); M22.42 Chondromalacia patellae, left knee; S83.412A Sprain of medial collateral ligament of left knee, initial encounter; S83.232A Complex tear of medial meniscus, current injury, left knee, initial encounter; X58.XXXA Exposure to other specified factors, initial encounter; R60.0 Localized edema
CPT/HCPCS: 73721; 80053; 80061; 82306; 88175

== ENCOUNTER → 2021-04-16 10:09 | Outpatient (BNVA) | payer MEDICARE, SELFPAY | PROVIDERS: PCP Nurse Practitioner Family; Visit Provider Anesthesiology Pain Medicine | DX: G89.29 Other chronic pain (principal); M50.90 Cervical disc disorder, unspecified, unspecified cervical region; M51.16 Intervertebral disc disorders with radiculopathy, lumbar region; M51.36 Other intervertebral disc degeneration, lumbar region; M53.3 Sacrococcygeal disorders, not elsewhere classified; M96.1 Postlaminectomy syndrome, not elsewhere classified; Z79.891 Long term (current) use of opiate analgesic | CPT/HCPCS: 99214 ==

== ENCOUNTER → 2021-05-01 13:31 | Outpatient (BNVA) | payer MEDICARE, SELFPAY | PROVIDERS: PCP Nurse Practitioner Family; Visit Provider Anesthesiology Pain Medicine | DX: G89.29 Other chronic pain (principal); M51.16 Intervertebral disc disorders with radiculopathy, lumbar region; Z79.891 Long term (current) use of opiate analgesic | CPT/HCPCS: 62323; J1040; J3490 ==

== ENCOUNTER 2021-05-15 09:41 | Outpatient (CLI) | payer MEDICARE, SELFPAY ==
--- NOTE | 2021-05-15 10:00 | MM_ITS ---
WS: [id number] BILATERAL DIGITAL SCREENING MAMMOGRAPHY WITH CAD CLINICAL INFORMATION: Z12.39 - Encounter for other screening for malignant neop... HISTORY: Screening mammogram. No current complaints. COMPARISON: 03/25 2020 and TECHNIQUE: Bilateral CC and MLO views. FINDINGS: Scattered fibroglandular densities bilaterally. No suspicious focal mass, asymmetry, calcifications, or architectural distortion. No evidence of malignancy. Biopsy marker left breast. Vascular calcifica tion. MM/[place] [id number] IMPRESSION: BI-RADS: 2-Benign FOLLOW UP: 1 Year Follow-up Recommend return to annual screening mammography.
== END 2021-05-15 09:42 | disposition home or self-care (01) ==
LOC: RADSHAW 09:42
PROVIDERS: PCP Nurse Practitioner Family; Visit Provider Nurse Practitioner Family
DX: Z12.31 Encounter for screening mammogram for malignant neoplasm of breast (principal); G89.29 Other chronic pain; M96.1 Postlaminectomy syndrome, not elsewhere classified; M51.36 Other intervertebral disc degeneration, lumbar region; M51.16 Intervertebral disc disorders with radiculopathy, lumbar region; M53.3 Sacrococcygeal disorders, not elsewhere classified; M50.90 Cervical disc disorder, unspecified, unspecified cervical region; M79.641 Pain in right hand; M79.642 Pain in left hand; M79.604 Pain in right leg; M79.605 Pain in left leg; Z79.891 Long term (current) use of opiate analgesic
CPT/HCPCS: 77067; 99214

== ENCOUNTER → 2021-06-16 13:09 | Outpatient (BNVA) | payer MEDICARE, SELFPAY | PROVIDERS: PCP Nurse Practitioner Family; Visit Provider Anesthesiology Pain Medicine | DX: G89.29 Other chronic pain (principal); M25.561 Pain in right knee; Z79.891 Long term (current) use of opiate analgesic | CPT/HCPCS: 20610; 77002; J1030; J3490 ==

== ENCOUNTER → 2021-06-30 09:16 | Outpatient (BNVA) | payer MEDICARE, SELFPAY | PROVIDERS: PCP Nurse Practitioner Family; Visit Provider Anesthesiology Pain Medicine | DX: M51.16 Intervertebral disc disorders with radiculopathy, lumbar region (principal); M51.36 Other intervertebral disc degeneration, lumbar region; M53.3 Sacrococcygeal disorders, not elsewhere classified; M96.1 Postlaminectomy syndrome, not elsewhere classified; M50.90 Cervical disc disorder, unspecified, unspecified cervical region; M19.90 Unspecified osteoarthritis, unspecified site; M25.561 Pain in right knee; M79.641 Pain in right hand; M79.642 Pain in left hand; M79.604 Pain in right leg; M79.605 Pain in left leg; Z79.899 Other long term (current) drug therapy; Z79.891 Long term (current) use of opiate analgesic | CPT/HCPCS: 99214 ==

== ENCOUNTER → 2021-07-30 09:05 | Outpatient (BNVA) | payer MEDICARE, SELFPAY | PROVIDERS: PCP Nurse Practitioner Family; Visit Provider Nurse Practitioner Family | DX: R39.9 Unspecified symptoms and signs involving the genitourinary system (principal) | CPT/HCPCS: 81000 ==

== ENCOUNTER → 2021-08-06 10:53 | Outpatient (BNVA) | payer MEDICARE, SELFPAY | PROVIDERS: PCP Nurse Practitioner Family; Visit Provider Anesthesiology Pain Medicine | DX: M51.16 Intervertebral disc disorders with radiculopathy, lumbar region (principal); M51.36 Other intervertebral disc degeneration, lumbar region; M96.1 Postlaminectomy syndrome, not elsewhere classified; M50.90 Cervical disc disorder, unspecified, unspecified cervical region; M53.3 Sacrococcygeal disorders, not elsewhere classified; M19.90 Unspecified osteoarthritis, unspecified site; M79.642 Pain in left hand; M79.641 Pain in right hand; M79.604 Pain in right leg; M79.605 Pain in left leg; Z79.899 Other long term (current) drug therapy; Z79.891 Long term (current) use of opiate analgesic | CPT/HCPCS: 99214 ==

== ENCOUNTER → 2021-08-25 13:33 | Outpatient (BNVA) | payer MEDICARE, SELFPAY | PROVIDERS: PCP Nurse Practitioner Family; Visit Provider Anesthesiology Pain Medicine | DX: Z79.891 Long term (current) use of opiate analgesic (principal); M53.3 Sacrococcygeal disorders, not elsewhere classified | CPT/HCPCS: G0260; J1040; J3490 ==

== ENCOUNTER → 2021-08-31 15:46 | Outpatient (BNVA) | payer MEDICARE, SELFPAY | PROVIDERS: PCP Nurse Practitioner Family; Visit Provider Nurse Practitioner Family | DX: R30.9 Painful micturition, unspecified (principal); N12 Tubulo-interstitial nephritis, not specified as acute or chronic | CPT/HCPCS: 81000; 87077; 87086; 87184 ==

== ENCOUNTER → 2021-09-08 10:49 | Outpatient (BNVA) | payer MEDICARE, SELFPAY | PROVIDERS: PCP Nurse Practitioner Family; Visit Provider Anesthesiology Pain Medicine | DX: M51.36 Other intervertebral disc degeneration, lumbar region (principal); M51.16 Intervertebral disc disorders with radiculopathy, lumbar region; M96.1 Postlaminectomy syndrome, not elsewhere classified; M50.90 Cervical disc disorder, unspecified, unspecified cervical region; M53.3 Sacrococcygeal disorders, not elsewhere classified; M19.90 Unspecified osteoarthritis, unspecified site; M25.559 Pain in unspecified hip; M79.641 Pain in right hand; M79.642 Pain in left hand; M79.604 Pain in right leg; M79.605 Pain in left leg; Z79.899 Other long term (current) drug therapy; Z79.891 Long term (current) use of opiate analgesic | CPT/HCPCS: 99214 ==

== ENCOUNTER → 2021-09-25 11:04 | Outpatient (BNVA) | payer MEDICARE, SELFPAY | PROVIDERS: PCP Nurse Practitioner Family; Visit Provider Nurse Practitioner Family | DX: R39.9 Unspecified symptoms and signs involving the genitourinary system (principal); R31.9 Hematuria, unspecified; N39.0 Urinary tract infection, site not specified | CPT/HCPCS: 81000; 87077; 87086; 87184 ==

== ENCOUNTER → 2021-10-14 13:45 | Outpatient (BNVA) | payer MEDICARE, SELFPAY | PROVIDERS: PCP Nurse Practitioner Family; Visit Provider Anesthesiology Pain Medicine | DX: Z79.891 Long term (current) use of opiate analgesic (principal) | CPT/HCPCS: 62323; J1040; J3490 ==

== ENCOUNTER → 2021-11-03 09:41 | Outpatient (BNVA) | payer MEDICARE, SELFPAY | PROVIDERS: PCP Nurse Practitioner Family; Visit Provider Anesthesiology Pain Medicine | DX: G89.29 Other chronic pain (principal); M51.16 Intervertebral disc disorders with radiculopathy, lumbar region; M51.36 Other intervertebral disc degeneration, lumbar region; M96.1 Postlaminectomy syndrome, not elsewhere classified; M25.551 Pain in right hip; M50.90 Cervical disc disorder, unspecified, unspecified cervical region; M53.3 Sacrococcygeal disorders, not elsewhere classified; M19.90 Unspecified osteoarthritis, unspecified site; M79.604 Pain in right leg; M79.605 Pain in left leg; Z79.899 Other long term (current) drug therapy; Z79.891 Long term (current) use of opiate analgesic | CPT/HCPCS: 73523; 99214 ==

== ENCOUNTER → 2021-12-01 09:42 | Outpatient (BNVA) | payer MEDICARE, SELFPAY | PROVIDERS: PCP Nurse Practitioner Family; Visit Provider Anesthesiology Pain Medicine | DX: M51.36 Other intervertebral disc degeneration, lumbar region (principal); M51.16 Intervertebral disc disorders with radiculopathy, lumbar region; M96.1 Postlaminectomy syndrome, not elsewhere classified; M16.0 Bilateral primary osteoarthritis of hip; M50.90 Cervical disc disorder, unspecified, unspecified cervical region; M53.3 Sacrococcygeal disorders, not elsewhere classified; M79.604 Pain in right leg; M79.605 Pain in left leg; M79.641 Pain in right hand; M79.642 Pain in left hand; Z79.899 Other long term (current) drug therapy; Z79.891 Long term (current) use of opiate analgesic | CPT/HCPCS: 99214 ==

== ENCOUNTER 2021-12-07 09:50 | Outpatient (CLI) | payer MEDICARE, SELFPAY ==
--- NOTE | 2021-12-07 10:30 | CT_ITS ---
WS: [id number] CT LUMBAR SPINE TECHNIQUE: Noncontrast CT of the lumbar spine with coronal and sagittal reformatted images. CLINICAL INFORMATION: M96.1 - Postlaminectomy syndrome, not elsewhere classified COMPARISON: CT October 15, 2020 DLP: 2466.[address] scans at [facility] use at least one of these dose optimization techniques: automated e xposure control; mA and/or kV adjustment per patient size (includes targeted exams where dose is matc hed to clinical indication); or iterative reconstruction. FINDINGS: Mild lumbar curve. No acute compression. Slight anterolisthesis L3 on L4. Pedicle screw fixation L4-5 with interconnecting rods. Pedicle screws are intact. No evidence of screw loosening. Dorsal lateral bone graft material. Laminectomy defects L4-L5 and L5-S1. Vacuum disc phenomenon with disc desiccati on L3-L4 is progressed compared to previous. L1-L2: Normal. L2-L3: No significant disc bulging. Moderate facet arthropathy. Spinal canal and foramen are patent. L3-L4: Slight anterolisthesis. Degenerative disc disease at this level with vacuum disc phenomenon mata s progressed compared to previous. Moderate to severe central canal stenosis. Moderate facet arthropa thy with ligamentum flavum hypertrophy. Moderate bilateral foraminal narrowing impinges the exiting L 3 nerve roots. Central canal stenosis at this level is slightly progressed. L4-L5: Prior postoperative changes laminectomy defects. Spinal canal and foramen are patent. L5-S1: Mild annular bulging. Spinal canal and foramen are patent. Moderate facet arthropathy. Visualized pelvic bony structures: Normal. Paravertebral soft tissues: Normal. CT/CT lumbar spine wo con* [id number] IMPRESSION: 1. Prior postoperative changes pedicle screw fixation L4-L5 laminectomy defect s. No evidence of hardware loosening. 2. Progressed disc desiccation L3-L4 with vacuum disc phenomenon and endplate degenerative changes. Moderate to severe central canal stenosis at this level h as progressed with impingement traversing L4 nerve roots. 3. Small bilateral foraminal protrusions L3-L4 impinges the exiting L3 nerve r oots bilaterally RIGHT greater than LEFT. 4. Spinal canal and foramen are patent at the fusion levels.
== END 2021-12-07 09:51 | disposition home or self-care (01) ==
LOC: RAD 09:52
PROVIDERS: PCP Nurse Practitioner Family; Visit Provider Anesthesiology Pain Medicine
DX: M51.16 Intervertebral disc disorders with radiculopathy, lumbar region (principal); M51.36 Other intervertebral disc degeneration, lumbar region; M96.1 Postlaminectomy syndrome, not elsewhere classified
CPT/HCPCS: 72131

== ENCOUNTER → 2021-12-28 10:58 | Outpatient (BNVA) | payer MEDICARE, SELFPAY | PROVIDERS: PCP Nurse Practitioner Family; Visit Provider Anesthesiology Pain Medicine | DX: M96.1 Postlaminectomy syndrome, not elsewhere classified (principal); M50.90 Cervical disc disorder, unspecified, unspecified cervical region; M51.16 Intervertebral disc disorders with radiculopathy, lumbar region; M51.36 Other intervertebral disc degeneration, lumbar region; M16.0 Bilateral primary osteoarthritis of hip; M53.3 Sacrococcygeal disorders, not elsewhere classified; M19.90 Unspecified osteoarthritis, unspecified site; Z79.899 Other long term (current) drug therapy; Z79.891 Long term (current) use of opiate analgesic | CPT/HCPCS: 99214 ==

== ENCOUNTER → 2022-02-01 10:45 | Outpatient (BNVA) | payer MEDICARE, SELFPAY | PROVIDERS: PCP Nurse Practitioner Family; Visit Provider Anesthesiology Pain Medicine | DX: M51.16 Intervertebral disc disorders with radiculopathy, lumbar region (principal); M51.36 Other intervertebral disc degeneration, lumbar region; M96.1 Postlaminectomy syndrome, not elsewhere classified; M50.90 Cervical disc disorder, unspecified, unspecified cervical region; M53.3 Sacrococcygeal disorders, not elsewhere classified; M25.551 Pain in right hip; M25.552 Pain in left hip; M19.90 Unspecified osteoarthritis, unspecified site; Z79.899 Other long term (current) drug therapy; Z79.891 Long term (current) use of opiate analgesic | CPT/HCPCS: 99214 ==

== ENCOUNTER → 2022-02-24 15:35 | Outpatient (BNVA) | payer MEDICARE, SELFPAY | PROVIDERS: PCP Nurse Practitioner Family; Visit Provider Nurse Practitioner Family | DX: N39.0 Urinary tract infection, site not specified (principal); R33.9 Retention of urine, unspecified | CPT/HCPCS: 81000 ==

== ENCOUNTER → 2022-02-25 09:18 | Outpatient (BNVA) | payer MEDICARE, SELFPAY | PROVIDERS: PCP Nurse Practitioner Family; Visit Provider Anesthesiology Pain Medicine | DX: M50.90 Cervical disc disorder, unspecified, unspecified cervical region (principal); M51.16 Intervertebral disc disorders with radiculopathy, lumbar region; M51.36 Other intervertebral disc degeneration, lumbar region; M96.1 Postlaminectomy syndrome, not elsewhere classified; M16.0 Bilateral primary osteoarthritis of hip; M53.3 Sacrococcygeal disorders, not elsewhere classified; M19.90 Unspecified osteoarthritis, unspecified site; M79.641 Pain in right hand; M79.642 Pain in left hand; Z79.899 Other long term (current) drug therapy; Z79.891 Long term (current) use of opiate analgesic | CPT/HCPCS: 99214 ==

== ENCOUNTER → 2022-03-02 14:01 | Outpatient (BNVA) | payer MEDICARE, SELFPAY | PROVIDERS: PCP Nurse Practitioner Family; Visit Provider Nurse Practitioner Family | DX: I10 Essential (primary) hypertension (principal); I49.8 Other specified cardiac arrhythmias | CPT/HCPCS: 99213; 99214 ==

== ENCOUNTER → 2022-04-01 10:58 | Outpatient (BNVA) | payer MEDICARE, SELFPAY | PROVIDERS: PCP Nurse Practitioner Family; Visit Provider Anesthesiology Pain Medicine | DX: M25.551 Pain in right hip (principal); M25.552 Pain in left hip; M17.0 Bilateral primary osteoarthritis of knee; Z79.891 Long term (current) use of opiate analgesic; M50.90 Cervical disc disorder, unspecified, unspecified cervical region; M96.1 Postlaminectomy syndrome, not elsewhere classified; M51.16 Intervertebral disc disorders with radiculopathy, lumbar region; M51.36 Other intervertebral disc degeneration, lumbar region; Z79.899 Other long term (current) drug therapy; M53.3 Sacrococcygeal disorders, not elsewhere classified; M19.90 Unspecified osteoarthritis, unspecified site | CPT/HCPCS: 99214 ==

== ENCOUNTER → 2022-04-27 11:04 | Outpatient (BNVA) | payer MEDICARE, SELFPAY | PROVIDERS: PCP Nurse Practitioner Family; Visit Provider Anesthesiology Pain Medicine | DX: M50.90 Cervical disc disorder, unspecified, unspecified cervical region (principal); M51.16 Intervertebral disc disorders with radiculopathy, lumbar region; M51.36 Other intervertebral disc degeneration, lumbar region; M96.1 Postlaminectomy syndrome, not elsewhere classified; M53.3 Sacrococcygeal disorders, not elsewhere classified; M16.0 Bilateral primary osteoarthritis of hip; Z79.899 Other long term (current) drug therapy | CPT/HCPCS: 99214 ==

== ENCOUNTER → 2022-05-04 09:06 | Outpatient (BNVA) | payer MEDICARE, SELFPAY | PROVIDERS: PCP Nurse Practitioner Family; Visit Provider Anesthesiology Pain Medicine | DX: M17.0 Bilateral primary osteoarthritis of knee (principal); M54.9 Dorsalgia, unspecified | CPT/HCPCS: 20610; G0463; J1040 ==

== ENCOUNTER → 2022-05-20 11:00 | Outpatient (BNVA) | payer MEDICARE, SELFPAY | PROVIDERS: PCP Nurse Practitioner Family; Visit Provider Nurse Practitioner Family | DX: I10 Essential (primary) hypertension (principal); E78.2 Mixed hyperlipidemia; E03.9 Hypothyroidism, unspecified | CPT/HCPCS: 80053; 80061; 84443 ==

== ENCOUNTER → 2022-05-27 10:07 | Outpatient (BNVA) | payer MEDICARE, SELFPAY | PROVIDERS: PCP Nurse Practitioner Family; Visit Provider Anesthesiology Pain Medicine | DX: M51.36 Other intervertebral disc degeneration, lumbar region (principal); M51.16 Intervertebral disc disorders with radiculopathy, lumbar region; M96.1 Postlaminectomy syndrome, not elsewhere classified; M25.551 Pain in right hip; M25.552 Pain in left hip; M50.90 Cervical disc disorder, unspecified, unspecified cervical region; M53.3 Sacrococcygeal disorders, not elsewhere classified; M19.90 Unspecified osteoarthritis, unspecified site; Z79.899 Other long term (current) drug therapy | CPT/HCPCS: 99214 ==

== ENCOUNTER 2022-06-07 09:21 | Outpatient (CLI) | payer MEDICARE, SELFPAY ==
--- NOTE | 2022-06-07 10:02 | MM_ITS ---
WS: [id number] SCREENING DIGITAL BREAST TOMOSYNTHESIS MAMMOGRAM WITH CAD HISTORY: SCREENING COMPARISON: 05/15/2021, 03/25/2020 and 02/28/2019 Bilateral CC and MLO with tomosynthesis and synthetic mammography submitted. Computer aided detection analyzed. Breast composition: There are scattered areas of fibroglandular density. 8 x 9 mm slightly lobulated nodule with a central calcification in the upper outer quadrant of the RIGHT breast at a middle depth . Biopsy clip in the upper outer quadrant of the LEFT breast. MM/[place] [id number] IMPRESSION: BI-RADS: 0-Incomplete: Need additional imaging evaluation FOLLOW UP: Need Additional Imaging Recommendation: RIGHT breast ultrasound, limited. Upper outer quadrant RIGHT br east.
== END 2022-06-07 09:22 | disposition home or self-care (01) ==
LOC: RAD 09:22
PROVIDERS: PCP Nurse Practitioner Family; Visit Provider Nurse Practitioner Family
DX: Z12.31 Encounter for screening mammogram for malignant neoplasm of breast (principal)
CPT/HCPCS: 77063; 77067

== ENCOUNTER → 2022-06-17 14:07 | Outpatient (BNVA) | payer MEDICARE, SELFPAY | PROVIDERS: PCP Nurse Practitioner Family; Visit Provider Nurse Practitioner Family | DX: E87.6 Hypokalemia (principal) | CPT/HCPCS: 80053 ==

== ENCOUNTER 2022-06-24 10:31 | Outpatient (CLI) | payer MEDICARE, SELFPAY ==
--- NOTE | 2022-06-24 10:37 | US_ITS ---
WS: [id number] ULTRASOUND RIGHT BREAST HISTORY: Follow-up nodule RIGHT breast. COMPARISON: 06/07/2022 TECHNIQUE: 2-D and Doppler. Hypoechoic nodule is slightly ovoid in the upper outer quadrant of the RIGHT breast at 11:00, 7 cm th e nipple. Nodule measures 8.8 x 4 mm. There is a tiny central calcification. This may be a small lymp h node. The shape is more rounded on the mammogram then ovoid. US/US breast RT limited* [id number] IMPRESSION: BI-RADS: 3-Probably Benign FOLLOW-UP: 6 Month Follow-up Recommend diagnostic RIGHT mammogram with possible ultrasound in 6 months. Mamm ogram and ultrasound findings are not definitely concordant. With no prior stud ies for comparison short-term follow-up is recommended.
== END 2022-06-24 10:32 | disposition home or self-care (01) ==
LOC: RAD 10:32
PROVIDERS: PCP Nurse Practitioner Family; Visit Provider Nurse Practitioner Family
DX: M51.16 Intervertebral disc disorders with radiculopathy, lumbar region (principal); M51.36 Other intervertebral disc degeneration, lumbar region; M96.1 Postlaminectomy syndrome, not elsewhere classified; M50.90 Cervical disc disorder, unspecified, unspecified cervical region; M53.3 Sacrococcygeal disorders, not elsewhere classified; M19.90 Unspecified osteoarthritis, unspecified site; M25.559 Pain in unspecified hip; M79.604 Pain in right leg; M79.605 Pain in left leg; Z79.899 Other long term (current) drug therapy; R92.8 Other abnormal and inconclusive findings on diagnostic imaging of breast; N63.11 Unspecified lump in the right breast, upper outer quadrant
CPT/HCPCS: 76642; 99214

== ENCOUNTER → 2022-07-21 10:08 | Outpatient (BNVA) | payer MEDICARE, SELFPAY | PROVIDERS: PCP Nurse Practitioner Family; Visit Provider Anesthesiology Pain Medicine | DX: M50.90 Cervical disc disorder, unspecified, unspecified cervical region (principal); M51.16 Intervertebral disc disorders with radiculopathy, lumbar region; M51.36 Other intervertebral disc degeneration, lumbar region; M96.1 Postlaminectomy syndrome, not elsewhere classified; M16.0 Bilateral primary osteoarthritis of hip; M79.641 Pain in right hand; M79.642 Pain in left hand; M53.3 Sacrococcygeal disorders, not elsewhere classified; M19.90 Unspecified osteoarthritis, unspecified site; Z79.899 Other long term (current) drug therapy | CPT/HCPCS: 99214 ==

== ENCOUNTER → 2022-08-24 09:48 | Outpatient (BNVA) | payer MEDICARE, SELFPAY | PROVIDERS: PCP Nurse Practitioner Family; Visit Provider Anesthesiology Pain Medicine | DX: M96.1 Postlaminectomy syndrome, not elsewhere classified (principal); M51.16 Intervertebral disc disorders with radiculopathy, lumbar region; M51.36 Other intervertebral disc degeneration, lumbar region; M50.90 Cervical disc disorder, unspecified, unspecified cervical region; M53.3 Sacrococcygeal disorders, not elsewhere classified; M16.0 Bilateral primary osteoarthritis of hip; M19.90 Unspecified osteoarthritis, unspecified site; Z79.899 Other long term (current) drug therapy | CPT/HCPCS: 99214 ==

== ENCOUNTER → 2022-08-30 14:46 | Outpatient (BNVA) | payer MEDICARE, SELFPAY | PROVIDERS: PCP Nurse Practitioner Family; Visit Provider Internal Medicine Cardiovascular Disease | DX: R00.2 Palpitations (principal); I49.8 Other specified cardiac arrhythmias; I10 Essential (primary) hypertension; E78.2 Mixed hyperlipidemia | CPT/HCPCS: 99214; Q3014 ==

== ENCOUNTER → 2022-10-12 09:58 | Outpatient (BNVA) | payer MEDICARE, SELFPAY | PROVIDERS: PCP Nurse Practitioner Family; Visit Provider Anesthesiology Pain Medicine | DX: M96.1 Postlaminectomy syndrome, not elsewhere classified (principal); M50.90 Cervical disc disorder, unspecified, unspecified cervical region; M51.16 Intervertebral disc disorders with radiculopathy, lumbar region; M53.3 Sacrococcygeal disorders, not elsewhere classified; M51.36 Other intervertebral disc degeneration, lumbar region; M16.0 Bilateral primary osteoarthritis of hip; M17.0 Bilateral primary osteoarthritis of knee; Z79.899 Other long term (current) drug therapy | CPT/HCPCS: 99214 ==

== ENCOUNTER → 2022-11-02 09:38 | Outpatient (BNVA) | payer MEDICARE, SELFPAY | PROVIDERS: PCP Nurse Practitioner Family; Visit Provider Anesthesiology Pain Medicine | DX: M51.36 Other intervertebral disc degeneration, lumbar region (principal); Z79.899 Other long term (current) drug therapy; M50.90 Cervical disc disorder, unspecified, unspecified cervical region; M96.1 Postlaminectomy syndrome, not elsewhere classified; M16.0 Bilateral primary osteoarthritis of hip; M53.3 Sacrococcygeal disorders, not elsewhere classified; M25.542 Pain in joints of left hand; M25.541 Pain in joints of right hand | CPT/HCPCS: 99214 ==

== ENCOUNTER → 2022-11-24 10:54 | Outpatient (BNVA) | payer MEDICARE, SELFPAY | PROVIDERS: PCP Nurse Practitioner Family; Visit Provider Nurse Practitioner Family | DX: N31.9 Neuromuscular dysfunction of bladder, unspecified (principal); I10 Essential (primary) hypertension; Z79.899 Other long term (current) drug therapy | CPT/HCPCS: 80053; 80061; 81000; 84443; 87077; 87086; 87184 ==

== ENCOUNTER → 2022-11-30 08:50 | Outpatient (BNVA) | payer MEDICARE, SELFPAY | PROVIDERS: PCP Nurse Practitioner Family; Visit Provider Anesthesiology Pain Medicine | DX: M50.90 Cervical disc disorder, unspecified, unspecified cervical region (principal); M96.1 Postlaminectomy syndrome, not elsewhere classified; M51.16 Intervertebral disc disorders with radiculopathy, lumbar region; M51.36 Other intervertebral disc degeneration, lumbar region; M16.0 Bilateral primary osteoarthritis of hip; M53.3 Sacrococcygeal disorders, not elsewhere classified; Z79.899 Other long term (current) drug therapy | CPT/HCPCS: 99213; 99214 ==

== ENCOUNTER → 2022-12-03 10:34 | Outpatient (BNVA) | payer MEDICARE, SELFPAY | PROVIDERS: PCP Nurse Practitioner Family; Visit Provider Nurse Practitioner Family | DX: N39.0 Urinary tract infection, site not specified (principal) | CPT/HCPCS: 87077; 87086; 87184 ==

== ENCOUNTER 2022-12-22 08:45 | Outpatient (CLI) | payer MEDICARE, SELFPAY ==
--- NOTE | 2022-12-22 09:09 | MM_ITS ---
WS: [id number] DIAGNOSTIC RIGHT DIGITAL TOMOSYNTHESIS MAMMOGRAPHY WITH CAD. RIGHT breast ultrasound, limited. HISTORY: Inconclusive. 6 month follow-up. COMPARISON: 06/07/2022, 05/15/2021 and prior ultrasound 06/24/2022 Technique: Spot compression CC and MLO. True ML. Breast composition: There are scattered areas of fibroglandular density. Soft tissue mass with centr al calcification measures 10 mm in the upper-outer quadrant of the RIGHT breast at a posterior depth. RIGHT breast ultrasound, limited. Reidentified at 11:00, 7 cm the nipple is a hypoechoic ovoid mass with central calcification measurin g 7 x 3 x 8 mm. Not significantly increased or size or change since the prior exams. MM/[place] [id number] IMPRESSION: BI-RADS: 3-Probably Benign FOLLOW UP: 6 Month Follow-up Patient to return in 6 months for annual mammography. By mammography if this ma ss continues to remain stable no additional imaging will be necessary.
== END 2022-12-22 08:46 | disposition home or self-care (01) ==
LOC: RAD 08:48
PROVIDERS: PCP Nurse Practitioner Family; Visit Provider Nurse Practitioner Family
DX: R92.8 Other abnormal and inconclusive findings on diagnostic imaging of breast (principal); N60.01 Solitary cyst of right breast
CPT/HCPCS: 76642; 77061; G0279

== ENCOUNTER → 2023-01-25 10:11 | Outpatient (BNVA) | payer MEDICARE, SELFPAY | PROVIDERS: PCP Nurse Practitioner Family; Visit Provider Anesthesiology Pain Medicine | DX: M51.36 Other intervertebral disc degeneration, lumbar region (principal); M51.16 Intervertebral disc disorders with radiculopathy, lumbar region; M96.1 Postlaminectomy syndrome, not elsewhere classified; M16.0 Bilateral primary osteoarthritis of hip; M50.90 Cervical disc disorder, unspecified, unspecified cervical region; M53.3 Sacrococcygeal disorders, not elsewhere classified; Z79.899 Other long term (current) drug therapy | CPT/HCPCS: 99214 ==

== ENCOUNTER → 2023-02-08 10:46 | Outpatient (BNVA) | payer MEDICARE, SELFPAY | PROVIDERS: PCP Nurse Practitioner Family; Visit Provider Nurse Practitioner Family | DX: N39.0 Urinary tract infection, site not specified (principal); E53.8 Deficiency of other specified B group vitamins; E55.9 Vitamin D deficiency, unspecified; E66.9 Obesity, unspecified; I10 Essential (primary) hypertension; I49.8 Other specified cardiac arrhythmias; Z79.899 Other long term (current) drug therapy; W57.XXXA Bitten or stung by nonvenomous insect and other nonvenomous arthropods, initial encounter | CPT/HCPCS: 80053; 80061; 81000; 82306; 82607; 82728; 82746; 83921; 84134; 84425; 85007; 85027; 87077; 87086; 87184 ==

== ENCOUNTER → 2023-02-23 08:36 | Outpatient (BNVA) | payer MEDICARE, SELFPAY | PROVIDERS: PCP Nurse Practitioner Family; Visit Provider Nurse Practitioner Family | DX: E87.6 Hypokalemia (principal); N39.0 Urinary tract infection, site not specified | CPT/HCPCS: 80053; 87086 ==

== ENCOUNTER → 2023-02-24 08:36 | Outpatient (BNVA) | payer MEDICARE, SELFPAY | PROVIDERS: PCP Nurse Practitioner Family; Visit Provider Anesthesiology Pain Medicine | DX: M51.36 Other intervertebral disc degeneration, lumbar region (principal); M51.16 Intervertebral disc disorders with radiculopathy, lumbar region; M96.1 Postlaminectomy syndrome, not elsewhere classified; M16.0 Bilateral primary osteoarthritis of hip; M50.90 Cervical disc disorder, unspecified, unspecified cervical region; M19.90 Unspecified osteoarthritis, unspecified site; M53.3 Sacrococcygeal disorders, not elsewhere classified; Z79.899 Other long term (current) drug therapy | CPT/HCPCS: 99214 ==

== ENCOUNTER → 2023-03-15 09:11 | Outpatient (BNVA) | payer MEDICARE, SELFPAY | PROVIDERS: PCP Nurse Practitioner Family; Visit Provider Nurse Practitioner Family | DX: N39.0 Urinary tract infection, site not specified (principal) | CPT/HCPCS: 81000; 87077; 87086; 87184 ==

== ENCOUNTER → 2023-04-05 10:35 | Outpatient (BNVA) | payer MEDICARE, SELFPAY | PROVIDERS: PCP Nurse Practitioner Family; Visit Provider Anesthesiology Pain Medicine | DX: M50.90 Cervical disc disorder, unspecified, unspecified cervical region (principal); M96.1 Postlaminectomy syndrome, not elsewhere classified; M51.16 Intervertebral disc disorders with radiculopathy, lumbar region | CPT/HCPCS: 99214 ==

== ENCOUNTER → 2023-04-28 09:10 | Outpatient (BNVA) | payer MEDICARE, SELFPAY | PROVIDERS: PCP Nurse Practitioner Family; Visit Provider Anesthesiology Pain Medicine | DX: M17.0 Bilateral primary osteoarthritis of knee | CPT/HCPCS: 20610; 99214; J1030; J3490 ==

== ENCOUNTER → 2023-06-01 11:05 | Outpatient (BNVA) | payer MEDICARE, SELFPAY | PROVIDERS: PCP Nurse Practitioner Family; Visit Provider Nurse Practitioner Family | DX: N39.0 Urinary tract infection, site not specified (principal); E53.8 Deficiency of other specified B group vitamins; Z79.899 Other long term (current) drug therapy; I10 Essential (primary) hypertension; E78.2 Mixed hyperlipidemia; R33.9 Retention of urine, unspecified | CPT/HCPCS: 80053; 80061; 81000; 82306; 82607 ==

== ENCOUNTER → 2023-06-28 09:01 | Outpatient (BNVA) | payer MEDICARE, SELFPAY | PROVIDERS: PCP Nurse Practitioner Family; Visit Provider Anesthesiology Pain Medicine | DX: M54.9 Dorsalgia, unspecified (principal) | CPT/HCPCS: 99214 ==

== ENCOUNTER → 2023-07-01 11:09 | Outpatient (BNVA) | payer MEDICARE, SELFPAY | PROVIDERS: PCP Nurse Practitioner Family; Visit Provider Nurse Practitioner Family | DX: E87.6 Hypokalemia (principal) | CPT/HCPCS: 80053 ==

== ENCOUNTER 2023-07-19 09:49 | Outpatient (CLI) | payer MEDICARE, SELFPAY ==
--- NOTE | 2023-07-19 10:04 | MM_ITS ---
WS: [id number] DIAGNOSTIC BILATERAL DIGITAL BREAST TOMOSYNTHESIS MAMMOGRAPHY WITH CAD RIGHT breast ultrasound, limited HISTORY: Reevaluation mass central calcification RIGHT breast. COMPARISON: 12/22/2022, 06/07/2022, 03/25/2020 TECHNIQUE: Bilateral craniocaudad, mediolateral oblique, and mediolateral views are submitted with to mosismael and SINDY. Computer aided detection utilized. Breast composition: There are scattered areas of fibroglandular density. Biopsy marker upper outer qu adrant LEFT breast is stable. No associated mass or calcifications. Again noted is a 9 mm ovoid nodul e with calcification in the upper outer quadrant of the RIGHT breast. Minimal increase in size since 06/07/2022. The calcification is new as seen on 06/07/2022. No additional abnormality. RIGHT breast ultrasound, limited. Hypoechoic mass with central shadowing calcification is reidentified in the RIGHT breast at 11:00 michela suring 7 x 9 x 4 mm. There is no increased vascularity. By ultrasound this mass has slightly increase d in size. IMPRESSION: MM/[place] [id number] BI-RADS: 4-Suspicious Finding-Biopsy Should Be Considered FOLLOW UP: Biopsy Recommended Ultrasound-guided biopsy recommended of the mass with calcification in the uppe r outer quadrant of the RIGHT breast. Mass is slightly increased in size since 12/22/2022.
--- NOTE | 2023-07-19 10:45 | US_ITS ---
WS: [id number] DIAGNOSTIC BILATERAL DIGITAL BREAST TOMOSYNTHESIS MAMMOGRAPHY WITH CAD RIGHT breast ultrasound, limited HISTORY: Reevaluation mass central calcification RIGHT breast. COMPARISON: 12/22/2022, 06/07/2022, 03/25/2020 TECHNIQUE: Bilateral craniocaudad, mediolateral oblique, and mediolateral views are submitted with to mosismael and SINDY. Computer aided detection utilized. Breast composition: There are scattered areas of fibroglandular density. Biopsy marker upper outer qu adrant LEFT breast is stable. No associated mass or calcifications. Again noted is a 9 mm ovoid nodul e with calcification in the upper outer quadrant of the RIGHT breast. Minimal increase in size since 06/07/2022. The calcification is new as seen on 06/07/2022. No additional abnormality. RIGHT breast ultrasound, limited. Hypoechoic mass with central shadowing calcification is reidentified in the RIGHT breast at 11:00 michela suring 7 x 9 x 4 mm. There is no increased vascularity. By ultrasound this mass has slightly increase d in size. IMPRESSION: US/US breast RT limited* [id number] BI-RADS: 4-Suspicious Finding-Biopsy Should Be Considered FOLLOW UP: Biopsy Recommended Ultrasound-guided biopsy recommended of the mass with calcification in the uppe r outer quadrant of the RIGHT breast. Mass is slightly increased in size since 12/22/2022.
== END 2023-07-19 09:50 | disposition home or self-care (01) ==
LOC: RAD 09:49
PROVIDERS: PCP Nurse Practitioner Family; Visit Provider Nurse Practitioner Family
DX: R92.8 Other abnormal and inconclusive findings on diagnostic imaging of breast (principal); Z12.31 Encounter for screening mammogram for malignant neoplasm of breast
CPT/HCPCS: 76642; 77062; G0279

== ENCOUNTER 2023-08-17 10:25 | Outpatient (CLI) | payer MEDICARE, SELFPAY ==
--- NOTE | 2023-08-17 11:45 | US_ITS ---
WS: [email or web address] ULTRASOUND-GUIDED RIGHT BREAST BIOPSY CLINICAL INFORMATION: R92.8 - Other abnormal and inconclusive findings on diagn... FINDINGS: The procedure including risks, benefits, and complications were discussed with the patient who agreed to proceed. Using sterile technique patient was prepped and draped in the usual sterile fashion. Aft er 1% lidocaine utilizing real-time ultrasound guidance four 14-gauge cores were obtained of the RIGH T breast lesion at the 11 o'clock position. Subsequently a titanium clip was placed in the biopsy cav ity. No immediate complications. Pathology demonstrates Right breast, 11:00 position, 7 cm from nipple, needle core biopsy: 1. Findings consistent with hyalinized fibroadenoma. 2. Coarse calcifications are present. 3. No atypia or malignancy is seen. IMPRESSION: 1. Uncomplicated ultrasound-guided RIGHT breast biopsy. 2. The pathology demonstrates fibroadenoma. No atypia or malignancy. 3. Recommend return to annual screening mammography. 4. US/[place] [id number] BI-RADS: 2-Benign FOLLOW UP: 1 Year Follow-up
== END 2023-08-17 10:26 | disposition home or self-care (01) ==
LOC: RAD 10:27
PROVIDERS: PCP Nurse Practitioner Family; Visit Provider Nurse Practitioner Family
DX: N63.11 Unspecified lump in the right breast, upper outer quadrant (principal); R92.8 Other abnormal and inconclusive findings on diagnostic imaging of breast
CPT/HCPCS: 19083; 88305

== ENCOUNTER 2023-09-03 09:16 | Outpatient (CLI) | payer MEDICARE, SELFPAY ==
[2023-09-03 10:03] LABS: Basophils # 0.1 10^3/uL (0.0-0.1); Basophils % 0.8 %; Eosinophils # 0.3 10^3/uL (0.0-0.8); Eosinophils % 3.6 %; Hematocrit 42.4 % (36-47); Lymphocytes # 2.4 10^3/uL (0.8-4.8); Lymphocytes % 33.7 %; Mean Corpuscular HGB Conc 34.2 g/dL (30-55); Mean Corpuscular Hemoglobin 29.4 pg (27-33); Mean Platelet Volume 11.5 fL (7.4-10.4); Monocytes # 0.5 10^3/uL (0.2-0.9); Neutrophils # 3.97 10^3/uL (1.8-7.7); Neutrophils % 54.8 %; Nucleated Red Blood Cells % 0 %; Platelet Count 225 10^3/cmm (157-399); Red Blood Count 4.93 10^6/uL (3.85-5.65); Red Cell Distribution Width 12.3 % (12.1-15.1); White Blood Count 7.25 10^3/uL (3.29-11.43)
[2023-09-03 10:27] LABS: Alanine Aminotransferase 20 U/L (0-33); Albumin Level 4.2 g/dL (3.5-5.2); Alkaline Phosphatase 116 U/L (35-105); Anion Gap 14.3 (5-19); Aspartate Amino Transferase 28 U/L (0-32); Blood Urea Nitrogen 13 mg/dL (8-23); Calcium 9.4 mg/dL (8.5-10.5); Carbon Dioxide 31 mmol/L (22-29); Chloride 99 mmol/L (98-107); Cholesterol 132 mg/dL (0-200); Ferritin 202 ng/mL (15-150); Globulin 3.1 g/dL (1.3-4.6); Glomerular Filtration Rate 101.3 mL/min (90-130); Glucose 101 mg/dL (65-115); HDL Cholesterol 60 mg/dL (60-100); LDL Cholesterol Calculated 54 mg/dL (50-129); Osmolality Calculated 292 mOsm/kg (285-295); Potassium 3.3 mmol/L (3.5-5.1); Prealbumin 21.3 mg/dL (20-40); Sodium 141 mmol/L (136-145); Total Bilirubin 0.8 mg/dL (0.15-1.2); Total Protein 7.3 g/dL (6.6-8.7); Triglycerides 91 mg/dL (0-150)
[2023-09-03 10:42] LABS: 25 Hydroxy Vitamin D 46 ng/mL (30-100); Vitamin B12 534 pg/mL (232-1245)
[2023-09-03 10:48] LABS: Folate Level > 20.0 ng/mL (4.8-37.3)
[2023-09-09 13:24] LABS: Vitamin B1 (Thiamine),Blood 111 nmol/L (78-185)
== END 2023-09-03 09:17 | disposition home or self-care (01) ==
PROVIDERS: PCP Nurse Practitioner Family; Visit Provider Surgery
DX: Z01.89 Encounter for other specified special examinations (principal)
CPT/HCPCS: 36415; 80053; 80061; 82306; 82607; 82728; 82746; 84134; 84425; 85025

== ENCOUNTER → 2023-09-28 10:18 | Outpatient (BNVA) | payer MEDICARE, SELFPAY | PROVIDERS: PCP Nurse Practitioner Family; Visit Provider Anesthesiology Pain Medicine | DX: M50.90 Cervical disc disorder, unspecified, unspecified cervical region (principal); M96.1 Postlaminectomy syndrome, not elsewhere classified; M51.16 Intervertebral disc disorders with radiculopathy, lumbar region | CPT/HCPCS: 99214 ==

== ENCOUNTER 2023-09-29 12:58 | Outpatient (CLI) | payer MEDICARE, SELFPAY ==
--- NOTE | 2023-09-29 13:30 | XR_ITS ---
WS: [id number] DEXA (DUAL ENERGY X-RAY ABSORPTIOMETRY) Bone mineral density was performed using a L8 SmartLight machine. HISTORY: M81.0 - Age-related osteoporosis without current patholog... COMPARISON: None available. Left forearm BMD: 0.854 g/cm2. T score: -0.2 Z score: 0.9 Total hip BMD: Left: 0.696 g/cm2. T score: -2.5 Z score: -1.8 Right: 0.738 g/cm2. T score: -2.1 Z score: -1.5 10 year probability of a major osteoporotic fracture is 16.7%. IMPRESSION: OSTEOPOROSIS based upon the WHO classification for females.
== END 2023-09-29 12:59 | disposition home or self-care (01) ==
LOC: RAD 12:58
PROVIDERS: PCP Nurse Practitioner Family; Visit Provider Nurse Practitioner Family
DX: M81.0 Age-related osteoporosis without current pathological fracture (principal)
CPT/HCPCS: 77080

== ENCOUNTER → 2023-10-04 07:38 | Outpatient (BNVA) | payer MEDICARE, SELFPAY | PROVIDERS: PCP Nurse Practitioner Family; Referring Provider Nurse Practitioner Family; Visit Provider Surgery | DX: Z12.11 Encounter for screening for malignant neoplasm of colon (principal) | CPT/HCPCS: 99024; 99203 ==

== ENCOUNTER → 2023-10-11 12:34 | Outpatient (BNVA) | payer MEDICARE, SELFPAY | PROVIDERS: PCP Nurse Practitioner Family; Visit Provider Internal Medicine | DX: R00.2 Palpitations (principal); I49.8 Other specified cardiac arrhythmias; I10 Essential (primary) hypertension; E78.2 Mixed hyperlipidemia | CPT/HCPCS: 99214 ==

== ENCOUNTER 2023-10-14 13:42 | Outpatient (CLI) | payer MEDICARE, SELFPAY ==
--- NOTE | 2023-10-14 14:15 | USCV_ITS ---
[facility] 63 Gender: F : 1960 Exam Date: 10/14/2023 13:02 Ordering Phys: Young Rivero M.D ([email or web address]) Technologist: MACY Exam Location: [facility] [place] Indication: SHORTNESS OF BREATH, CHEST PAIN BP: 120 / 78 HR: 71 Rhythm: Sinus Technical Quality: Adequate MEASUREMENTS (Male / Female) Normal Values 2D ECHO LV Diastolic Diameter PLAX 3.8 cm 4.2 - 5.9 / 3.9 - 5.3 cm IVS Diastolic Thickness 1.1 cm 0.6 - 1.0 / 0.6 - 0.9 cm IVS Systolic Thickness 1.2 cm LVPW Diastolic Thickness 1.6 cm 0.6 - 1.0 / 0.6 - 0.9 cm LVPW Systolic Thickness 2.3 cm LVOT Diameter 2.0 cm LV Ejection Fraction 2D Teich 64.0 % LV Ejection Fraction MOD 2C 66.7 % LV Ejection Fraction 2C AL 0.0 % LA Diameter 3.1 cm RA Systolic Volume 4C AL 23.6 ml RA Systolic Volume 4C MOD 21.8 ml Aorta at Sinotubular Diameter 2.4 cm IVC Diameter 1.2 cm M-MODE LA Ao Ratio MM 1.2 AV Cusp Separation MM 1.7 cm DOPPLER AV Peak Velocity 128.0 cm/s LVOT Peak Velocity 104.0 cm/s AV Area Cont Eq vti 2.7 cm squared AV Area Cont Eq pk 2.6 cm squared MV Peak Velocity 93.0 cm/s MV Area PHT 2.7 cm squared Mitral E to A Ratio 0.9 TR Peak Velocity 257.5 cm/s TR Peak Gradient 26.5 mmHg TR Mean Velocity 227.0 cm/s TR Mean Gradient 22.2 mmHg TR Velocity Time Integral 92.3 cm TV Peak E Velocity 49.0 cm/s Right Atrial Pressure 3.0 mmHg Pulmonary Artery Systolic Pressu 29.5 mmHg PV Peak Velocity 93.0 cm/s RV Ejection Time 0.3 s FINDINGS Left Ventricle Left ventricle is normal in size. LV systolic function is normal with EF of 60 to 65%. No regional wall motion abnormalities are seen. Right Ventricle Normal in size and function Right Atrium Normal in size Left Atrium Normal in size Mitral Valve Structurally normal mitral valve. Mild mitral regurgitation. Aortic Valve Structurally normal aortic valve. No significant stenosis or regurgitation. Tricuspid Valve Mild tricuspid regurgitation. Pulmonary artery systolic pressure is normal Pulmonic Valve Not well visualized Pericardium Normal Aorta Normal in size IVC Appears to be normal CONCLUSIONS LV systolic function is normal with EF of 60-65% Mild mitral regurgitation Mild tricuspid regurgitation Compared to prior echocardiogram from 2020, no significant changes are seen Young Rivero MD (Electronically Signed) Final Date: 18 October 2023 14:23 S
== END 2023-10-14 13:43 | disposition home or self-care (01) ==
LOC: RAD 13:43
PROVIDERS: PCP Nurse Practitioner Family; Visit Provider Internal Medicine
DX: I08.1 Rheumatic disorders of both mitral and tricuspid valves (principal)
CPT/HCPCS: 93306

== ENCOUNTER → 2023-11-23 09:45 | Outpatient (BNVA) | payer MEDICARE, SELFPAY | PROVIDERS: PCP Nurse Practitioner Family; Visit Provider Nurse Practitioner Family | DX: E03.9 Hypothyroidism, unspecified (principal); I10 Essential (primary) hypertension | CPT/HCPCS: 84443 ==

== ENCOUNTER → 2023-12-05 15:20 | Outpatient (BNVA) | payer MEDICARE, SELFPAY | PROVIDERS: PCP Nurse Practitioner Family; Visit Provider Nurse Practitioner Family | DX: E53.8 Deficiency of other specified B group vitamins (principal); R53.83 Other fatigue; D64.9 Anemia, unspecified | CPT/HCPCS: 80053; 81000; 82607; 85007; 85027 ==

== ENCOUNTER → 2023-12-27 10:37 | Outpatient (BNVA) | payer MEDICARE, SELFPAY | PROVIDERS: PCP Nurse Practitioner Family; Visit Provider Anesthesiology Pain Medicine | DX: M06.9 Rheumatoid arthritis, unspecified (principal); M50.90 Cervical disc disorder, unspecified, unspecified cervical region; M96.1 Postlaminectomy syndrome, not elsewhere classified; M51.16 Intervertebral disc disorders with radiculopathy, lumbar region | CPT/HCPCS: 99214 ==

== ENCOUNTER 2023-12-29 06:32 | Day surgery (SDC) | payer MEDICARE, SELFPAY ==
[2023-12-29 06:48] VITALS: BP 112/83; PULSE 75; RESP 18; TEMP 36.2; O2SAT 97
--- NOTE | 2023-12-29 06:55 | P.HP_ITS ---
Same Day Surgery H&P Indication for Procedure/HPI DATE OF PROCEDURE: December 29, 2023 CHIEF COMPLAINT/INDICATIONFOR SURGICAL PROCEDURE: encounter for screening colonoscopy PREOP DIAGNOSIS: encounter for screening colonoscopy PLANNED PROCEDURE: Operation Date: 12/29/23 07:40 Proposed Procedures p 61837 colon G0121 screen colon A risk Z12.11(Not Applicable) - Dre Pichardo MD Medications/Allergies* Home Medications Medication Instructions Recorded Confirmed Type magnesium 200 mg tablet 400 mg PO DAILY 06/25/20 12/29/23 History calcium carbonate (Calcium 500) 1,250 mg PO DAILY 10/12/22 12/29/23 History mecobalamin (vitamin B12) 10,000 10,000 mcg IM .MONTHLY 10/12/22 12/29/23 History mcg solution for injection cholecalciferol (vitamin D3) 125 125 mcg PO DAILY 12/27/23 12/29/23 History mcg (5,000 unit) capsule duloxetine 60 mg capsule,delayed 60 mg PO BID 12/27/23 12/29/23 History release hydrochlorothiazide 25 mg tablet 25 mg PO DAILY 12/27/23 12/29/23 History levothyroxine 88 mcg tablet 88 mcg PO DAILY 12/27/23 12/29/23 History potassium chloride 10 mEq 10 meq PO DAILY 12/27/23 12/29/23 History capsule,extended release Allergies/Adverse Reactions Allergy/AdvReac Type Severity Reaction Status Date / Time Sulfa (Sulfonamide Allergy rash Verified 12/29/23 06:45 Antibiotics) Pertinent History/Comorbid Conditions* Medical History (Updated 12/05/23 @ 15:59 by MARIA D Turner) Opioid contract exists Tear of medial cartilage or meniscus of knee, current Abnormal stress test Urine retention Hypothyroidism Cinthya's disease Hypertension Neuropathy Lung nodule Neurogenic bladder Arthritis Fibromyalgia Degenerative disc disease Surgical History (Updated 10/05/23 @ 15:57 by MARIA D Turner) Hx of colonoscopy [place] about 10 yrs ago History of esophagogastroduodenoscopy (EGD) [place] 10 yrs ago S/P gastric bypass History of lumbar surgery 2011 [place] Hx of neck surgery 2017 Dr. Stone [place]ust[place] History of spinal surgery History of hysterectomy History of tubal ligation History of tonsillectomy History of pelvic surgery Family History (Updated 06/25/20 @ 14:47 by Susie Siddiqui LPN) Heart disease Father Cancer Mother Social History Smoking and tobacco/nicotine status: never used tobacco/nicotine Second hand smoke exposure: No Alcohol intake: never Substance/Drug Use: never Adopted: No Caregiver/support person: No Lives independently: No Household members: spouse Marital status: Current occupational status: retired Sexually active: Yes Do you think of yourself as: Straight/Heterosexual Current gender identity: Female Pertinent Exam Findings alert, oriented x 3, clear to auscultation bilaterally, regular rate & rhythm and operative site marked Recommendations Surgery/Procedure today Coding Level of Care Code Acute Code for Chg Fwd
[2023-12-29] MEDS: sodium chloride 0.9% 1,000 ML 30 ML IV (06:57)
--- NOTE | 2023-12-29 07:02 | ANES.PREANE2 ---
Pre-Anesthetic Assessment Height/Weight: Height 1.63 m Weight 79.379 kg Temp Pulse Resp BP Pulse Ox O2 Del Method 97.2 F L 75 18 112/83 97 Room Air 12/29/23 06:48 12/29/23 06:48 12/29/23 06:48 12/29/23 06:48 12/29/23 06:48 12/29/23 06:48 Preop Diagnosis: encounter for screening colonoscopy Operation Date: 12/29/23 07:40 Proposed Procedures p 54774 colon G0121 screen colon A risk Z12.11(Not Applicable) - Dre Pichardo MD Familial anesthetic complications: none Was Beta Emanuel taken within 24 hours: N/A Was Clonidine taken within 24 hours: N/A Last intake: Intake Last Liquid Date 12/28/23 Last Liquid Time 20:30 Last Solid Date 12/27/23 Last Solid Time 20:00 Social No alcohol and No tobacco Exam alert and oriented x 3 Airway Submandibular: within normal limits Cervical ROM: within normal limits Mallampati: Class I Dentition: full History/ROS No significant history except as noted Pulmonary None reported CV/HEM Arrythmia (bigeminy) None reported Hepatic None reported GI None reported Metabolic gastric bypass 1 year ago- no issues since procedure Musc/skel None reported Neuropsych None reported Anesthetic Plan ASA status: 2 Anesthesia: Anesthesia Evaluation, General and MAC Medications/Allergies Home Medications Medication Instructions Recorded Confirmed Last Taken Type magnesium 200 mg tablet 400 mg PO DAILY 06/25/20 12/29/23 12/28/23 History nitroglycerin 0.4 mg sublingual 0.4 mg sublingual Q5M PRN chest 12/01/20 12/29/23 01/20/21 06:30 Rx tablet pain #25 tabs calcium carbonate (Calcium 500) 1,250 mg PO DAILY 10/12/22 12/29/23 12/20/23 History mecobalamin (vitamin B12) 10,000 10,000 mcg IM .MONTHLY 10/12/22 12/29/23 12/21/23 History mcg solution for injection diltiazem HCl 420 mg capsule,24 420 mg PO DAILY #90 caps 08/01/23 12/29/23 12/29/23 Rx hr,extended release valsartan 80 mg tablet 40 mg (1/2 x 80 mg) PO DAILY #45 10/05/23 12/29/23 12/28/23 Rx tabs zoledronic acid 5 mg/100 mL in 1 ea IV ONCE 10/05/23 12/29/23 11/02/23 Rx mannitol 5 %-water intravenous piggybck (Reclast) atorvastatin 10 mg tablet 10 mg PO DAILY #90 tabs 10/31/23 12/29/23 12/29/23 Rx levocetirizine 5 mg tablet (Xyzal) 5 mg PO DAILY #90 tabs 12/05/23 12/29/23 12/28/23 Rx cholecalciferol (vitamin D3) 125 125 mcg PO DAILY 12/27/23 12/29/23 12/28/23 History mcg (5,000 unit) capsule duloxetine 60 mg capsule,delayed 60 mg PO BID 12/27/23 12/29/23 12/28/23 History release hydrochlorothiazide 25 mg tablet 25 mg PO DAILY 12/27/23 12/29/23 12/28/23 History levothyroxine 88 mcg tablet 88 mcg PO DAILY 12/27/23 12/29/23 12/28/23 History potassium chloride 10 mEq 10 meq PO DAILY 12/27/23 12/29/23 12/28/23 History capsule,extended release pregabalin 200 mg capsule 200 mg PO TID pain #90 caps 12/27/23 12/29/23 12/29/23 Rx tizanidine 4 mg tablet 8 mg (2 x 4 mg) PO BID PRN muscle 12/27/23 12/29/23 12/28/23 Rx spasticity #120 tabs tramadol 50 mg tablet 50 mg PO BID PRN pain #45 tabs 12/27/23 12/29/23 12/26/23 Rx Allergies Allergy/AdvReac Type Severity Reaction Status Date / Time Sulfa (Sulfonamide Allergy rash Verified 12/29/23 06:45 Antibiotics) Current Medications Generic Name Dose Route Start Last Admin Trade Name Freq PRN Reason Stop Dose Admin Sodium Chloride 1,000 mls @ 30 mls/hr 12/29/23 06:45 12/29/23 06:57 Sodium Chloride 0.9% IV 12/30/23 06:44 30 mls/hr .Q24H NAKUL Administration PFSH Anesthesia Medical History Opioid contract exists Tear of medial cartilage or meniscus of knee, current Abnormal stress test Urine retention Hypothyroidism Cinthya's disease Hypertension Neuropathy Lung nodule Neurogenic bladder Arthritis Fibromyalgia Degenerative disc disease Surgical History Hx of [place] about 10 yrs ago History of esophagogastroduodenoscopy ([place]GD) [place] 10 yrs ago S/P gastric bypass History of lumbar surgery 2011 [place] Hx of neck surgery 2017 Dr. Stone Bustillos [place] History of spinal surgery History of hysterectomy History of tubal ligation History of tonsillectomy History of pelvic surgery Family History Father Heart disease Mother Cancer Social History Smoking and tobacco/nicotine status: never used tobacco/nicotine Second hand smoke exposure: No Alcohol intake: never Substance/Drug Use: never Adopted: No Caregiver/support person: No Lives independently: No Household members: spouse Marital status: Current occupational status: retired Sexually active: Yes Do you think of yourself as: Straight/Heterosexual Current gender identity: Female Data Anesthesia Cardiac Studies: Echocardiogram 10/14/23 Echocardiogram Ultrasound 09/12/20 Sestamibi Stress Test (Cardiology) 10/22/20 Holter Monitor 09/02/20
[2023-12-29 08:16] VITALS: BP 100/52; PULSE 77; RESP 16; TEMP 36.2; O2SAT 100
[2023-12-29 08:28] VITALS: BP 110/63; PULSE 71; RESP 16; O2SAT 100
--- NOTE | 2023-12-29 08:55 | ANE.PACU2 ---
Inpatient post-anesthesia follow up: Airway intact: Yes Vital signs: Temperature 97.1 F Pulse Rate 71 Respiratory Rate 16 Blood Pressure 110/63 Pulse Oximetry 100 Oxygen Delivery Me thod Room Air Oxygen Flow Rate Fraction of Inspir ed Oxygen Hydration adequate: Yes Nausea and vomiting: No Pain level: 1 Mental status: Baseline
== END 2023-12-29 08:46 | disposition home or self-care (01) ==
PROVIDERS: PCP Nurse Practitioner Family; Visit Provider Surgery
PROC: 0DJD8ZZ Inspection of Lower Intestinal Tract, Via Natural or Artificial Opening Endoscopic (ICD-10-PCS; CPT 45378; principal; 2023-12-29 07:40)
DX: Z12.11 Encounter for screening for malignant neoplasm of colon (principal); D12.2 Benign neoplasm of ascending colon; D12.4 Benign neoplasm of descending colon; D12.3 Benign neoplasm of transverse colon; I10 Essential (primary) hypertension; M79.7 Fibromyalgia; Z98.1 Arthrodesis status
CPT/HCPCS: 45380; 45385; 88305; J2704; J7030

== ENCOUNTER → 2024-01-11 09:09 | Outpatient (BNVA) | payer MEDICARE, SELFPAY | PROVIDERS: PCP Nurse Practitioner Family; Visit Provider Surgery | DX: Z09 Encounter for follow-up examination after completed treatment for conditions other than malignant neoplasm (principal) | CPT/HCPCS: 99213 ==

== ENCOUNTER → 2024-01-26 10:48 | Outpatient (BNVA) | payer MEDICARE, SELFPAY | PROVIDERS: PCP Nurse Practitioner Family; Visit Provider Anesthesiology Pain Medicine | DX: M50.90 Cervical disc disorder, unspecified, unspecified cervical region (principal); M96.1 Postlaminectomy syndrome, not elsewhere classified; M51.16 Intervertebral disc disorders with radiculopathy, lumbar region | CPT/HCPCS: 99214 ==

== ENCOUNTER → 2024-07-25 10:25 | Outpatient (BNVA) | payer MEDICARE, SELFPAY | PROVIDERS: PCP Nurse Practitioner Family; Visit Provider Nurse Practitioner Family | DX: M54.9 Dorsalgia, unspecified (principal); I10 Essential (primary) hypertension; R53.83 Other fatigue; E06.3 Autoimmune thyroiditis; E78.2 Mixed hyperlipidemia; E03.9 Hypothyroidism, unspecified; M51.16 Intervertebral disc disorders with radiculopathy, lumbar region | CPT/HCPCS: 80053; 80061; 81000; 84439; 84443; 85025 ==

== ENCOUNTER 2024-08-21 11:12 | Outpatient (CLI) | payer MEDICARE, SELFPAY ==
--- NOTE | 2024-08-21 11:45 | USR_ITS ---
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 Exam focused on the thyroid. COMPARISON: No relevant prior studies available. FINDINGS: Right thyroid lobe: Right thyroid lobe measures 1 x 0.9 x 3.4 cm. Heterogeneous appearance to the right thyroid lobe without measurable nodules. Normal vascularity to the right thyroid lobe. Left thyroid lobe: Left thyroid lobe measures 1.1 x 0.8 x 3.2 cm. Heterogeneous appearance of the left thyroid lobe without measurable nodules. Normal vascularity to the left thyroid lobe. Isthmus: Thyroid isthmus measures 0.2 cm. US/US thyroid [id number] IMPRESSION: Slightly atrophied thyroid gland (likely sequela of Cinthya's thyroiditis) without measurable nodules.
== END 2024-08-21 11:13 | disposition home or self-care (01) ==
LOC: RAD 11:18
PROVIDERS: PCP Nurse Practitioner Family; Visit Provider Nurse Practitioner Family
DX: E06.3 Autoimmune thyroiditis (principal)
CPT/HCPCS: 76536

== ENCOUNTER → 2024-08-28 14:22 | Outpatient (BNVA) | payer MEDICARE, SELFPAY | PROVIDERS: PCP Nurse Practitioner Family; Visit Provider Anesthesiology Pain Medicine | DX: M17.0 Bilateral primary osteoarthritis of knee (principal); M54.9 Dorsalgia, unspecified | CPT/HCPCS: 20610; 99213; J1010; J3490 ==

== ENCOUNTER → 2024-09-18 13:01 | Outpatient (BNVA) | payer MEDICARE, SELFPAY | PROVIDERS: PCP Nurse Practitioner Family; Visit Provider Anesthesiology Pain Medicine | DX: M54.16 Radiculopathy, lumbar region (principal); M54.9 Dorsalgia, unspecified | CPT/HCPCS: 62323; J1010 ==

== ENCOUNTER → 2024-10-08 08:51 | Outpatient (BNVA) | payer MEDICARE, SELFPAY | PROVIDERS: PCP Nurse Practitioner Family; Visit Provider Anesthesiology Pain Medicine | DX: M54.9 Dorsalgia, unspecified (principal); M25.561 Pain in right knee; M25.562 Pain in left knee | CPT/HCPCS: 99214 ==

== ENCOUNTER → 2024-10-10 13:07 | Outpatient (BNVA) | payer MEDICARE, SELFPAY | PROVIDERS: PCP Nurse Practitioner Family; Visit Provider Internal Medicine | DX: R00.2 Palpitations (principal); I49.8 Other specified cardiac arrhythmias; I10 Essential (primary) hypertension; E78.2 Mixed hyperlipidemia | CPT/HCPCS: 99213 ==

== ENCOUNTER → 2024-10-17 09:41 | Outpatient (BNVA) | payer MEDICARE, SELFPAY | PROVIDERS: PCP Nurse Practitioner Family; Visit Provider Nurse Practitioner Family | DX: I10 Essential (primary) hypertension (principal) | CPT/HCPCS: 80048 ==

== ENCOUNTER 2024-10-25 08:27 | Outpatient (CLI) | payer MEDICARE, SELFPAY ==
--- NOTE | 2024-10-25 09:00 | MM_ITS ---
WS: [id number] BILATERAL 3D TOMOSYNTHESIS DIGITAL SCREENING MAMMOGRAPHY WITH CAD CLINICAL INFORMATION: Z12.39 - Encounter for other screening for malignant neop... HISTORY: Screening mammogram. No current complaints. COMPARISON: 2022 TECHNIQUE: Bilateral CC and MLO views. FINDINGS: Scattered fibroglandular densities bilaterally. No suspicious focal mass, asymmetry, calcifications, or architectural distortion. No evidence of malignancy. Stable biopsy clips. Vascular calcifications. MM/MM scr tomosynthesis [id number] IMPRESSION: DENSITY: There are scattered areas of fibroglandular density. BI-RADS: 2 - Benign. FOLLOW UP: 1 Year Follow-up Recommend return to annual screening mammography.
== END 2024-10-25 08:28 | disposition home or self-care (01) ==
PROVIDERS: PCP Nurse Practitioner Family; Visit Provider Nurse Practitioner Family
DX: Z12.31 Encounter for screening mammogram for malignant neoplasm of breast (principal); R92.323 Mammographic fibroglandular density, bilateral breasts; R92.1 Mammographic calcification found on diagnostic imaging of breast
CPT/HCPCS: 77063; 77067

== ENCOUNTER → 2024-12-31 10:48 | Outpatient (BNVA) | payer MEDICARE, SELFPAY | PROVIDERS: PCP Nurse Practitioner Family; Visit Provider Anesthesiology Pain Medicine | DX: M54.9 Dorsalgia, unspecified (principal); M25.561 Pain in right knee; M25.562 Pain in left knee | CPT/HCPCS: 99214 ==

== ENCOUNTER → 2025-04-01 10:12 | Outpatient (BNVA) | payer MEDICARE, SELFPAY | PROVIDERS: PCP Nurse Practitioner Family; Visit Provider Anesthesiology Pain Medicine | DX: M54.9 Dorsalgia, unspecified (principal); M25.569 Pain in unspecified knee | CPT/HCPCS: 99213 ==

== ENCOUNTER → 2025-05-01 08:11 | Outpatient (BNVA) | payer MEDICARE, SELFPAY | PROVIDERS: PCP Nurse Practitioner Family; Visit Provider Nurse Practitioner Family | DX: I10 Essential (primary) hypertension (principal); Z79.899 Other long term (current) drug therapy | CPT/HCPCS: 80053; 80061; 84443 ==

== ENCOUNTER → 2025-06-10 10:14 | Outpatient (BNVA) | payer MEDICARE, SELFPAY | PROVIDERS: PCP Nurse Practitioner Family; Visit Provider Anesthesiology Pain Medicine | DX: M51.16 Intervertebral disc disorders with radiculopathy, lumbar region (principal); M96.1 Postlaminectomy syndrome, not elsewhere classified; M54.9 Dorsalgia, unspecified; M25.569 Pain in unspecified knee | CPT/HCPCS: 99214 ==